=== PATIENT | female | born 1945 | race Caucasian/White ===

== ENCOUNTER 2021-01-16 16:58 | Observation (INO) | payer MEDICARE ==
--- NOTE | 2021-01-16 18:21 | EDM.PDOC ---
ED HPI GENERAL MEDICAL PROBLEM - General Chief Complaint: General Stated Complaint: FELL AT HOME Time Seen by Provider: 01/16/21 17:59 Source of Information: Reports: Family History Limitations: Reports: Other (Patient has dementia with psychosis does not answer questions) - History of Present Illness INITIAL COMMENTS - FREE TEXT/NARRATIVE: Aura is a 75-year-old female presenting with her for evaluation of multiple falls today. The patient's notes that over the last couple of days she has become increasingly weak, sleeping more, and eating less. Today she only consumed a glass of orange juice and a glass of water. He reports that this morning he went and brought her breakfast but she did not want to eat. Shortly thereafter she try to get out of bed to use the bathroom but had already had urinary incontinence in bed which is not typical for her. On the way to the bathroom she fell and struck her head on the side of the night stand. He said that she had a bump on her head but otherwise was not complaining. Later in the day she was up but was quite unsteady and he was helping her back into the bedroom where she wanted to sit in the chair next to the bed. He decided to take a nap and when he awoke she had gotten up and changed her top and when he went to seek her out she was on the bathroom floor. He helped her up to get her to the toilet but in route she collapsed again causing him to strike 1 arm on the counter in the other arm on the toilet. He did help her down to the ground. Staff from the assisted living helped him and get her back up and they strongly suggested that he bring her in for evaluation. back Pain Score (Numeric/FACES): 8 - Related Data Allergies Allergy/AdvReac Type Severity Reaction Status Date / Time Penicillins Allergy Other Verified 01/16/21 17:24 Sulfa (Sulfonamide Allergy Other Verified 01/16/21 17:24 Antibiotics) Home Meds: Home Meds Cholecalciferol (Vitamin D3) [Vitamin D3] 50 mcg PO DAILY 01/16/21 [History] Donepezil HCl [Aricept] 10 mg PO BEDTIME 01/16/21 [History] FLUoxetine HCl [Prozac] 40 mg PO DAILY 01/16/21 [History] LORazepam [Ativan] 0.5 mg PO ASDIRECTED 01/16/21 [History] Loratadine 10 mg PO ASDIRECTED 01/16/21 [History] Mv-Min/Iron/Folic/Calcium/Vitk [Women's Multivitamin Tablet] 1 tab PO DAILY 01/16/21 [History] Propylene Glycol/PEG 400/Pf [Systane 0.3-0.4% Eye Drop] 1 drop EYEBOTH BID 01/16/21 [History] lisinopriL [Lisinopril] 2.5 mg PO DAILY 01/16/21 [History] risperiDONE [Risperdal] 1 mg PO DAILY 01/16/21 [History] Past Medical History HEENT History: Reports: Cataract Cardiovascular History: Reports: High Cholesterol, Hypertension Respiratory History: Reports: Sleep Apnea, SOB Musculoskeletal History: Reports: Fibromyalgia, Osteoarthritis, Other (See Below) Other Musculoskeletal History: bursitis Psychiatric History: Reports: Depression, Hallucinations, Schizophrenia, Other (See Below) Other Psychiatric History: mood disorder. catatonic schizophrenia. schizoaffective disorder Social & Family History - Tobacco Use Tobacco Use Status *Q: Never Tobacco User - Caffeine Use Caffeine Use: Reports: None - Recreational Drug Use Recreational Drug Use: No ED ROS GENERAL - Review of Systems Review Of Systems: Unable To Obtain Reason Not Obtained: Dementia with psychosis. Not able to answer questions ED EXAM, GENERAL - Physical Exam Exam: See Below Exam Limited By: Altered Mental Status General Appearance: No Apparent Distress, Lethargic Eye Exam: Bilateral Eye: PERRL Nose: Normal Inspection, Normal Mucosa Throat/Mouth: Normal Inspection, Normal Lips, Normal Teeth, Normal Oropharynx, Normal Voice, No Airway Compromise Head: Atraumatic, Normocephalic. No: Facial Swelling, Facial Tenderness, Sinus Tenderness Neck: Supple, Tender Midline (Mild midline tenderness around the level of C3-C4) Respiratory/Chest: No Respiratory Distress, Lungs Clear, Normal Breath Sounds Cardiovascular: Normal Peripheral Pulses, Regular Rate, Rhythm, No Murmur Peripheral Pulses: 2+: Radial (L), Radial (R), Posterior Tibial (L), Posterior Tibial (R) GI/Abdominal: Normal Bowel Sounds, Soft, Non-Tender Back Exam: Normal Inspection, Full Range of Motion Extremities: Normal Inspection, Normal Range of Motion Neurological: Alert, No Motor/Sensory Deficits Skin Exam: Warm, Dry Course - Vital Signs Last Recorded V/S: Last Vital Signs Temp 36.3 C 01/16/21 18:40 Pulse 71 01/16/21 19:56 Resp 16 01/16/21 17:15 BP 131/56 L 01/16/21 19:56 Pulse Ox 96 01/16/21 19:56 - Orders/Labs/Meds Orders: Active Orders 24 hr Category Date Time Status CULTURE URINE [RM] Stat Lab 01/16/21 20:06 Ordered Labs: Laboratory Tests 01/16/21 01/16/21 01/16/21 Range/Units 18:01 18:32 18:32 WBC 17.8 H (4.5-11.0) K/uL RBC 4.25 (3.30-5.50) M/uL Hgb 13.3 (12.0-15.0) g/dL Hct 40.3 (36.0-48.0) % MCV 95 (80-98) fL MCH 31 (27-31) pg MCHC 33 (32-36) % Plt Count 223 (150-400) K/uL Neut % (Auto) 88.0 H (36-66) % Lymph % (Auto) 2.8 L (24-44) % [place] % (Auto) 9.1 H (2-6) % Eos % (Auto) 0.0 L (2-4) % Baso % (Auto) 0.1 (0-1) % PT 10.8 (9.5-12.0) sec INR 0.99 (0.80-1.20) APTT 22.4 L (27.0-36.0) sec Sodium (140-148) mmol/L Potassium (3.6-5.2) mmol/L Chloride (100-108) mmol/L Carbon Dioxide (21-32) mmol/L Anion Gap (5.0-14.0) mmol/L BUN (7-18) mg/dL Creatinine (0.6-1.0) mg/dL Est Cr Clr Drug Dosing mL/min Estimated GFR (MDRD) (>60) Glucose (74-106) mg/dL Lactic Acid (0.4-2.0) mmol/L Calcium (8.5-10.1) mg/dL Total Bilirubin (0.2-1.0) mg/dL AST (15-37) U/L ALT (12-78) U/L Alkaline Phosphatase (46-116) U/L Total Protein (6.4-8.2) g/dL Albumin (3.4-5.0) g/dL Globulin (2.3-3.5) g/dL Albumin/Globulin Ratio (1.2-2.2) Urine Color Yellow (YELLOW) Urine Appearance Cloudy A (CLEAR) Urine pH 7.0 (5.0-8.0) Ur Specific [place] 1.025 (1.008-1.030) Urine Protein 100 H (NEGATIVE) mg/dL Urine Glucose (UA) Negative (NEGATIVE) mg/dL Urine Ketones 15 H (NEGATIVE) mg/dL Urine Occult Blood Moderate H (NEGATIVE) Urine Nitrite Positive H (NEGATIVE) Urine Bilirubin Negative (NEGATIVE) Urine Urobilinogen 0.2 (0.2-1.0) EU/dL Ur Leukocyte Esterase Small H (NEGATIVE) Urine RBC 10-20 H (0-5) Urine WBC Packed H (0-5) Ur Epithelial Cells Few Amorphous Sediment Not seen Urine Bacteria Many Urine Mucus Not seen 01/16/21 01/16/21 Range/Units 18:32 18:32 WBC (4.5-11.0) K/uL RBC (3.30-5.50) M/uL Hgb (12.0-15.0) g/dL Hct (36.0-48.0) % MCV (80-98) fL MCH (27-31) pg MCHC (32-36) % Plt Count (150-400) K/uL Neut % (Auto) (36-66) % Lymph % (Auto) (24-44) % [place] % (Auto) (2-6) % Eos % (Auto) (2-4) % Baso % (Auto) (0-1) % PT (9.5-12.0) sec INR (0.80-1.20) APTT (27.0-36.0) sec Sodium 141 (140-148) mmol/L Potassium 4.0 (3.6-5.2) mmol/L Chloride 102 (100-108) mmol/L Carbon Dioxide 29 (21-32) mmol/L Anion Gap 10.4 (5.0-14.0) mmol/L BUN 19 H (7-18) mg/dL Creatinine 1.0 (0.6-1.0) mg/dL Est Cr Clr Drug Dosing 39.47 mL/min Estimated GFR (MDRD) 54 L (>60) Glucose 115 H (74-106) mg/dL Lactic Acid 1.0 (0.4-2.0) mmol/L Calcium 9.2 (8.5-10.1) mg/dL Total Bilirubin 0.5 (0.2-1.0) mg/dL AST 17 (15-37) U/L ALT 36 (12-78) U/L Alkaline Phosphatase 60 (46-116) U/L Total Protein 6.5 (6.4-8.2) g/dL Albumin 3.4 (3.4-5.0) g/dL Globulin 3.1 (2.3-3.5) g/dL Albumin/Globulin Ratio 1.1 L (1.2-2.2) Urine Color (YELLOW) Urine Appearance (CLEAR) Urine pH (5.0-8.0) Ur Specific [place] (1.008-1.030) Urine Protein (NEGATIVE) mg/dL Urine Glucose (UA) (NEGATIVE) mg/dL Urine Ketones (NEGATIVE) mg/dL Urine Occult Blood (NEGATIVE) Urine Nitrite (NEGATIVE) Urine Bilirubin (NEGATIVE) Urine Urobilinogen (0.2-1.0) EU/dL Ur Leukocyte Esterase (NEGATIVE) Urine RBC (0-5) Urine WBC (0-5) Ur Epithelial Cells Amorphous Sediment Urine Bacteria Urine Mucus - Radiology Interpretation Free Text/Narrative:: I reviewed the CT of the brain without contrast showing periventricular white matter changes consistent with microvascular disease and diffuse atrophy. There is no acute intracranial abnormalities including bleed, mass, or midline shift. I reviewed the CT of the cervical spine without contrast showing no acute osseous abnormalities. Patient does have degenerative disc disease which is chronic. - Re-Assessments/Exams Free Text/Narrative Re-Assessment/Exam: 01/16/21 19:28 reviewed the patient's labs showing a leukocyte count of 17.8 which is 90% neutrophils. Her hemoglobin is 13 3 with a crit of 40.3. Her comprehensive metabolic panel is unremarkable. Her venous lactate is 1.0. Her PT and PTT are normal. We are awaiting urinalysis. A CT of the brain without contrast was unremarkable for any acute findings. There was evidence of chronic periventricular white matter changes consistent with microvascular disease and generalized atrophy. CT scan of the cervical spine without contrast was also unremarkable for any acute findings. There was evidence of chronic degenerative disc disease. 01/16/21 20:06 urinalysis shows nicolasa pyuria with positive nitrite and leukocyte esterase and packed WBCs on the high field view. A urine culture has been ordered. Because of the recurrent falls and her underlying dementia, we will admit her to the hospital under observation for initiating antibiotic therapy. I discussed the case with Dr. Miller will arrange for the admission. Departure - Departure Time of Disposition: 20:07 Disposition: Refer to Observation Clinical Impression: Recurrent falls, Generalized weakness, Dementia with psychosis Urinary tract infection Qualifiers: Urinary tract infection type: acute cystitis Hematuria presence: with hematuria Qualified Code(s): N30.01 - Acute cystitis with hematuria - Discharge Information Referrals: PCP,None [Primary Care Provider] - Forms: ED Department Discharge Sepsis Event Note (ED) - Evaluation Sepsis Screening Result: No Definite Risk - Focused Exam Vital Signs: Vital Signs Temp Pulse Resp BP Pulse Ox 01/16/21 19:56 71 131/56 L 96 01/16/21 18:40 36.3 C 62 124/49 L 94 L 01/16/21 17:15 36.7 C 66 16 130/58 L 94 L - My Orders Last 24 Hours: My Active Orders 01/16/21 20:06 CULTURE URINE [RM] Stat - Assessment/Plan Last 24 Hours: My Active Orders 01/16/21 20:06 CULTURE URINE [RM] Stat
--- NOTE | 2021-01-16 19:00 | CRLCT ---
INDICATION: Multiple falls, neck pain TECHNIQUE: CT cervical spine without contrast. COMPARISON: None FINDINGS: Vertebral alignment: Alignment is normal. Vertebrae: There are no fractures or suspicious bony lesions. Discs and facet joints: Two-level degenerative changes Extraspinal findings: Prevertebral soft tissues, visualized airway, and visualized lungs are unremarkable. IMPRESSION: No evidence of acute cervical spine trauma Multilevel degenerative changes. Dictated by Chin Alcala MD @ 01/16/2021 6:59:08 PM Please note that all CT scans at this facility use dose modulation, iterative reconstruction, and/or weight-based dosing when appropriate to reduce radiation dose to as low as reasonably achievable. Dictated by: Chin Alcala MD @ 01/16/2021 18:59:13 (Electronically Signed)
--- NOTE | 2021-01-16 19:00 | CRLCT ---
INDICATION: Multiple falls, dementia TECHNIQUE: CT head without contrast. COMPARISON: None FINDINGS: CSF spaces: Within normal limits for age. Brain parenchyma: The finley-white differentiation is normal. No sign of mass, hemorrhage, or midline shift. Periventricular white matter changes consistent chronic microvascular disease. Diffuse final spot Skull base and calvarium: The visualized paranasal sinuses and mastoid air cells demonstrate no acute or significant findings. The visualized orbits are grossly unremarkable. No skull fractures. IMPRESSION: No acute intracranial abnormalities. Periventricular white matter changes consistent chronic microvascular disease. Diffuse volume loss. Dictated by Chin Alcala MD @ 01/16/2021 6:57:53 PM Please note that all CT scans at this facility use dose modulation, iterative reconstruction, and/or weight-based dosing when appropriate to reduce radiation dose to as low as reasonably achievable. Dictated by: Chin Alcala MD @ 01/16/2021 18:58:04 (Electronically Signed)
[2021-01-16] MEDS ORDERED: Sodium Chloride 0.9% 1,000 ML IV ONE (20:14)
[2021-01-16] MEDS ORDERED: Acetaminophen 500 MG Tab PO ONE (20:15)
--- NOTE | 2021-01-16 21:03 | CRLCR ---
HISTORY: Left hip pain with movement. COMPARISON: None available. FINDINGS: A single AP view of the pelvis shows no sign of fracture or dislocation. There is mild primary osteoarthritis of the left hip with mild joint space narrowing, without any additional degenerative change. The right hip is normal in appearance with no sign of degenerative disease. There is mild primary osteoarthritis of both sacroiliac joints. The rest of the bony pelvis is normal in appearance. The inferior lumbar spine is normal in appearance. The soft tissues of the pelvis are unremarkable. 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 Dictated by Henry Gustafson MD @ 01/16/2021 9:01:[address] Henry Gustafson @ Jan 16 2021 9:01PM
[2021-01-16] MEDS: cefTRIAXone 1 GM in Sodium Chloride 0.9% 50 ML IV SCH (21:11)
--- NOTE | 2021-01-16 21:16 | PCM.HP.2 ---
H&P History of Present Illness - General Date of Service: 01/16/21 Admit Problem/Dx: Admission Diagnosis/Problem Admission Diagnosis/Problem Acute cystitis without hematuria Source of Information: Family, Provider. No: Patient History Limitations: Reports: Altered Mental Status (advanced dementia) - History of Present Illness Initial Comments - Free Text/Narative: CC: two falls HPI: Aura presented to the emergency room after she had a couple of falls at home. She has advanced dementia and is not able to provide any reliable history at this time. History is gathered from her Chetan as well as emergency room personnel. He reports that she has been off for several days. She has been refusing to go down for breakfast like normal. He has not noticed a si gnificant change beyond this until today. She appeared to be weak and was unsteady on her feet. She had 2 falls at home. One of them was unwitnessed. He did not notice any obvious injuries that she was not complaining of any specific pain. He has not noticed any change in her bowel or bladder habits. She has been sleeping more than usual. She has been eating quite a bit less than usual the last 2 to 3 days. She has not had any vomiting. She has not appeared short of breath per his report. Work-up in the emergency room revealed evidence for a urinary tract infection. She has leukocytosis with a white blood cell count of 17,000. Vital signs are otherwise stable. She will be admitted to the hospital for IV fluids and antibiotics. back Pain Score (Numeric/FACES): 8 - Related Data Allergies/Adverse Reactions: Allergies Allergy/AdvReac Type Severity Reaction Status Date / Time Penicillins Allergy Other Verified 01/16/21 17:24 Sulfa (Sulfonamide Allergy Other Verified 01/16/21 17:24 Antibiotics) Home Medications: Home Meds Cholecalciferol (Vitamin D3) [Vitamin D3] 50 mcg PO DAILY 01/16/21 [History] Donepezil HCl [Aricept] 10 mg PO BEDTIME 01/16/21 [History] FLUoxetine HCl [Prozac] 40 mg PO DAILY 01/16/21 [History] LORazepam [Ativan] 0.5 mg PO BID PRN 01/16/21 [History] Loratadine 10 mg PO ASDIRECTED 01/16/21 [History] Mv-Min/Iron/Folic/Calcium/Vitk [Women's Multivitamin Tablet] 1 tab PO DAILY 01/16/21 [History] Propylene Glycol/PEG 400/Pf [Systane 0.3-0.4% Eye Drop] 1 drop EYEBOTH BID 01/16/21 [History] lisinopriL [Lisinopril] 2.5 mg PO DAILY 01/16/21 [History] risperiDONE [Risperdal] 1 mg PO BID 01/16/21 [History] Past Medical History HEENT History: Reports: Cataract Cardiovascular History: Reports: High Cholesterol, Hypertension Respiratory History: Reports: Sleep Apnea, SOB Musculoskeletal History: Reports: Fibromyalgia, Osteoarthritis, Other (See Below) Other Musculoskeletal History: bursitis Psychiatric History: Reports: Depression, Hallucinations, Schizophrenia, Other ( See Below) Other Psychiatric History: mood disorder. catatonic schizophrenia. schizoaffective disorder Social & Family History - Family History Family Medical History: Unobtainable (advanced demenia) - Tobacco Use Tobacco Use Status *Q: Never Tobacco User - Caffeine Use Caffeine Use: Reports: None - Alcohol Use Alcohol Use History: No - Recreational Drug Use Recreational Drug Use: No H&P Review of Systems - Review of Systems: Review Of Systems: Unable To Obtain (advanced dementia) Reason Not Obtained: Advanced dementia Exam - Exam Exam: See Below - Vital Signs Vital Signs: Last Vital Signs Temp 39.3 C H 01/16/21 20:16 Pulse 72 01/16/21 20:16 Resp 16 01/16/21 17:15 BP 141/59 H 01/16/21 20:16 Pulse Ox 94 L 01/16/21 20:16 Weight: 49.895 kg - Exam Quality Assessment: No: Supplemental Oxygen General: Alert, Cooperative, Mild Distress. No: Oriented HEENT: Conjunctiva Clear. No: Mucosa Moist & [place] (dry), Scleral Icterus Neck: Supple, Trachea Midline. No: Lymphadenopathy Lungs: Clear to Auscultation, Normal Respiratory Effort Cardiovascular: Regular Rate, Regular Rhythm. No: Systolic Murmur GI/Abdominal Exam: Normal Bowel Sounds, Soft, Non-Tender, No Distention, No Mass Extremities: No Pedal Edema, Other (mild ttp over left lateral hip. No bruising or deformity ). No: Joint Swelling, Increased Warmth Peripheral Pulses: 2+: Dorsalis Pedis (L), Dorsalis Pedis (R) Skin: Warm, Dry Neuro Extensive - Mental Status: Alert, Slow Response to Commands. No: Oriented x3 Neuro Extensive - Motor, Sensory, Reflexes: Tremor. No: Dysarthria, Abnormal Motor Psychiatric: Alert, Other (lethargic ). No: Agitated - Patient Data Lab Results Last 24 hrs: Laboratory Results - last 24 hr 01/16/21 01/16/21 01/16/21 Range/Units 18:01 18:32 18:32 WBC 17.8 H (4.5-11.0) K/uL RBC 4.25 (3.30-5.50) M/uL Hgb 13.3 (12.0-15.0) g/dL Hct 40.3 (36.0-48.0) % MCV 95 (80-98) fL MCH 31 (27-31) pg MCHC 33 (32-36) % Plt Count 223 (150-400) K/uL Neut % (Auto) 88.0 H (36-66) % Lymph % (Auto) 2.8 L (24-44) % [place] % (Auto) 9.1 H (2-6) % Eos % (Auto) 0.0 L (2-4) % Baso % (Auto) 0.1 (0-1) % PT 10.8 (9.5-12.0) sec INR 0.99 (0.80-1.20) APTT 22.4 L (27.0-36.0) sec Sodium (140-148) mmol/L Potassium (3.6-5.2) mmol/L Chloride (100-108) mmol/L Carbon Dioxide (21-32) mmol/L Anion Gap (5.0-14.0) mmol/L BUN (7-18) mg/dL Creatinine (0.6-1.0) mg/dL Est Cr Clr Drug Dosing mL/min Estimated GFR (MDRD) (>60) Glucose (74-106) mg/dL Lactic Acid (0.4-2.0) mmol/L Calcium (8.5-10.1) mg/dL Total Bilirubin (0.2-1.0) mg/dL AST (15-37) U/L ALT (12-78) U/L Alkaline Phosphatase (46-116) U/L Total Protein (6.4-8.2) g/dL Albumin (3.4-5.0) g/dL Globulin (2.3-3.5) g/dL Albumin/Globulin Ratio (1.2-2.2) Urine Color Yellow (YELLOW) Urine Appearance Cloudy A (CLEAR) Urine pH 7.0 (5.0-8.0) Ur Specific [place] 1.025 (1.008-1.030) Urine Protein 100 H (NEGATIVE) mg/dL Urine Glucose (UA) Negative (NEGATIVE) mg/dL Urine Ketones 15 H (NEGATIVE) mg/dL Urine Occult Blood Moderate H (NEGATIVE) Urine Nitrite Positive H (NEGATIVE) Urine Bilirubin Negative (NEGATIVE) Urine Urobilinogen 0.2 (0.2-1.0) EU/dL Ur Leukocyte Esterase Small H (NEGATIVE) Urine RBC 10-20 H (0-5) Urine WBC Packed H (0-5) Ur Epithelial Cells Few Amorphous Sediment Not seen Urine Bacteria Many Urine Mucus Not seen 01/16/21 01/16/21 Range/Units 18:32 18:32 WBC (4.5-11.0) K/uL RBC (3.30-5.50) M/uL Hgb (12.0-15.0) g/dL Hct (36.0-48.0) % MCV (80-98) fL MCH (27-31) pg MCHC (32-36) % Plt Count (150-400) K/uL Neut % (Auto) (36-66) % Lymph % (Auto) (24-44) % [place] % (Auto) (2-6) % Eos % (Auto) (2-4) % Baso % (Auto) (0-1) % PT (9.5-12.0) sec INR (0.80-1.20) APTT (27.0-36.0) sec Sodium 141 (140-148) mmol/L Potassium 4.0 (3.6-5.2) mmol/L Chloride 102 (100-108) mmol/L Carbon Dioxide 29 (21-32) mmol/L Anion Gap 10.4 (5.0-14.0) mmol/L BUN 19 H (7-18) mg/dL Creatinine 1.0 (0.6-1.0) mg/dL Est Cr Clr Drug Dosing 39.47 mL/min Estimated GFR (MDRD) 54 L (>60) Glucose 115 H (74-106) mg/dL Lactic Acid 1.0 (0.4-2.0) mmol/L Calcium 9.2 (8.5-10.1) mg/dL Total Bilirubin 0.5 (0.2-1.0) mg/dL AST 17 (15-37) U/L ALT 36 (12-78) U/L Alkaline Phosphatase 60 (46-116) U/L Total Protein 6.5 (6.4-8.2) g/dL Albumin 3.4 (3.4-5.0) g/dL Globulin 3.1 (2.3-3.5) g/dL Albumin/Globulin Ratio 1.1 L (1.2-2.2) Urine Color (YELLOW) Urine Appearance (CLEAR) Urine pH (5.0-8.0) Ur Specific [place] (1.008-1.030) Urine Protein (NEGATIVE) mg/dL Urine Glucose (UA) (NEGATIVE) mg/dL Urine Ketones (NEGATIVE) mg/dL Urine Occult Blood (NEGATIVE) Urine Nitrite (NEGATIVE) Urine Bilirubin (NEGATIVE) Urine Urobilinogen (0.2-1.0) EU/dL Ur Leukocyte Esterase (NEGATIVE) Urine RBC (0-5) Urine WBC (0-5) Ur Epithelial Cells Amorphous Sediment Urine Bacteria Urine Mucus Result Diagrams: 01/16/21 18:32 01/16/21 18:32 Imaging Impressions Last 24 hrs: All of the images below were personally reviewed head CT-mild diffuse volume loss but no acute finding such as mass, hemorrhage or fracture CT of the cervical spine-no evidence for acute fracture or subluxation X-ray of the pelvis-no evidence for fracture of the pelvis or hip Sepsis Event Note - Evaluation Sepsis Screening Result: No Definite Risk - Focused Exam Vital Signs: Vital Signs Temp Pulse Resp BP Pulse Ox 01/16/21 20:16 39.3 C H 72 141/59 H 94 L 01/16/21 19:56 71 131/56 L 96 01/16/21 18:40 36.3 C 62 124/49 L 94 L 01/16/21 17:15 36.7 C 66 16 130/58 L 94 L *Q Meaningful Use (ADM) - VTE Risk Assess *Q Each Risk Factor Represents 1 Point: None Total Score 1 Point Risk Factors: 0 Each Risk Factor Represents 2 Points: Age 60 - 74 Years Total Score 2 Point Risk Factors: 2 Each Risk Factor Represents 3 Points: None Total Score 3 Point Risk Factors: 0 Each Risk Factor Represents 5 Points: None Total Score 5 Point Risk Factors: 0 Venous Thromboembolism Risk Factor Score *Q: 2 - Problem List (1) Acute cystitis without hematuria SNOMED Code(s): 91842882 ICD Code: N30.00 - ACUTE CYSTITIS WITHOUT HEMATURIA Status: Acute Current Visit: Yes (2) Alzheimer's dementia with behavioral disturbance SNOMED Code(s): 2169545849215 ICD Code: G30.9 - ALZHEIMER'S DISEASE, UNSPECIFIED; F02.81 - DEMENTIA IN OTH DISEASES CLASSD ELSWHR W BEHAVIORAL DISTURB Status: Chronic Current Visit: Yes Qualifiers: Alzheimer's disease onset: late-onset Qualified Code(s): G30.1 - Alzheimer's disease with late onset; F02.81 - Dementia in other diseases classified elsewhere with behavioral disturbance Problem List Initiated/Reviewed/Updated: Yes Orders Last 24hrs: Active Orders 24 hr Category Date Time Status Patient Status Manage Transfer [TRANSFER] Routine ADT 01/16/21 21:04 Ordered CULTURE URINE [RM] Stat Lab 01/16/21 20:13 Received Sodium Chloride 0.9% [Normal Saline] 1,000 ml Med 01/16/21 20:14 Active IV .BOLUS cefTRIAXone [Rocephin] 1 gm Med 01/16/21 22:00 Ordered Sodium Chloride 0.9% [Normal Saline] 50 ml IV Q24H Resuscitation Status Routine Resus Stat 01/16/21 21:06 Ordered Medication Orders Sodium Chloride (Normal Saline) 1,000 mls @ 999 mls/hr IV .BOLUS ONE Stop: 01/16/21 21:14 Last Admin: 01/16/21 20:22 Dose: 999 mls/hr Documented by: JONES Ceftriaxone Sodium 1 gm/ (Sodium Chloride) 50 mls @ 100 mls/hr IV Q24H COUNT INCLUDES THE [facility] Assessment/Plan Comment:: ASSESSMENT AND PLAN - Acute cystitis without hematuria-manifestations of weakness and increased confusion from baseline. She does have leukocytosis. Vital signs are currently stable. Lactic acid was normal. -Ceftriaxone -Follow-up urine culture -IV fluids overnight -Symptomatic management of fever -Physical therapy in the morning Alzheimer's dementia with behavioral disturbance-history of previous stays at behavioral units. She has had difficulty with auditory hallucinations. -Continue outpatient management including risperidone -Melatonin at bedtime Maintenance issues - -DVT prophylaxis-mechanical -GI prophylaxis-not indicated -Nutrition-regular diet -Forde catheter-not indicated CODE STATUS -unable to reach her Chetan to talk about this tonight. I cannot find any previous documentation. She will be full code until we can talk about it again tomorrow. Admission justification -this patient will be admitted for observation to initiate antibiotics and IV fluids. She is not safe for management at home because of her frequent falls and advanced dementia. Disposition -I anticipate discharge back to her assisted living after the hospital stay Primary care physician -Dr. Madonna Miller M.D. - Mortality Measure Prognosis:: Good
[2021-01-16] MEDS ORDERED: Haloperidol Lactate 5 MG/ML SDV IVPUSH PRN (22:06)
[2021-01-16] MEDS ORDERED: Ondansetron 4 MG/2 ML SDV IV PRN (22:06)
[2021-01-16] MEDS ORDERED: risperiDONE 1 MG Tab PO SCH (22:06)
[2021-01-16] MEDS ORDERED: Ondansetron 4 MG Tab.DIS PO PRN (22:06)
[2021-01-16] MEDS ORDERED: Ibuprofen 600 MG Tab PO PRN (22:06)
[2021-01-16] MEDS ORDERED: Magnesium Hydroxide 400 MG/5 ML Susp 30 ML Cup PO PRN (22:06)
[2021-01-16] MEDS ORDERED: Donepezil 10 MG Tab PO SCH (22:06)
[2021-01-16] MEDS ORDERED: Sodium Chloride 0.9% 1,000 ML IV SCH (22:06)
[2021-01-16] MEDS: Melatonin 3 MG Tab PO SCH (22:21)
[2021-01-17] MEDS ORDERED: Lisinopril 2.5 MG Tab PO SCH (09:00)
[2021-01-17] MEDS ORDERED: FLUoxetine 20 MG Cap PO SCH (09:00)
--- NOTE | 2021-01-17 10:31 | PCM.PN ---
- General Info Date of Service: 01/17/21 Subjective Update: There were no acute events overnight. No reliable history is able to be obtained because of her dementia. Patient did have an additional fever after admission but temperature is normal this morning. The patient did have a fall this morning after getting up on her own. She is complaining of some lower back discomfort but there are no apparent injuries. She does not report abdominal pain. White count is a little better. Urine culture is growing a gram-negative mary. - Review of Systems General: Reports: Fever Neurological: Reports: Confusion - Patient Data Vitals - Most Recent: Last Vital Signs Temp 37.1 C 01/17/21 09:43 Pulse 65 01/17/21 09:43 Resp 18 01/17/21 09:43 BP 112/56 L 01/17/21 09:43 Pulse Ox 98 01/17/21 09:43 Weight - Most Recent: 49.804 kg I&O - Last 24 Hours: Intake & Output 01/16/21 01/17/21 01/17/21 22:59 06:59 14:59 Intake Total 910 Balance 910 Lab Results Last 24 Hours: Laboratory Results - last 24 hr 01/16/21 01/16/21 01/16/21 Range/Units 18:01 18:32 18:32 WBC 17.8 H (4.5-11.0) K/uL RBC 4.25 (3.30-5.50) M/uL Hgb 13.3 (12.0-15.0) g/dL Hct 40.3 (36.0-48.0) % MCV 95 (80-98) fL MCH 31 (27-31) pg MCHC 33 (32-36) % Plt Count 223 (150-400) K/uL Neut % (Auto) 88.0 H (36-66) % Lymph % (Auto) 2.8 L (24-44) % [place] % (Auto) 9.1 H (2-6) % Eos % (Auto) 0.0 L (2-4) % Baso % (Auto) 0.1 (0-1) % PT 10.8 (9.5-12.0) sec INR 0.99 (0.80-1.20) APTT 22.4 L (27.0-36.0) sec Sodium (140-148) mmol/L Potassium (3.6-5.2) mmol/L Chloride (100-108) mmol/L Carbon Dioxide (21-32) mmol/L Anion Gap (5.0-14.0) mmol/L BUN (7-18) mg/dL Creatinine (0.6-1.0) mg/dL Est Cr Clr Drug Dosing mL/min Estimated GFR (MDRD) (>60) Glucose (74-106) mg/dL Lactic Acid (0.4-2.0) mmol/L Calcium (8.5-10.1) mg/dL Total Bilirubin (0.2-1.0) mg/dL AST (15-37) U/L ALT (12-78) U/L Alkaline Phosphatase (46-116) U/L Total Protein (6.4-8.2) g/dL Albumin (3.4-5.0) g/dL Globulin (2.3-3.5) g/dL Albumin/Globulin Ratio (1.2-2.2) Urine Color Yellow (YELLOW) Urine Appearance Cloudy A (CLEAR) Urine pH 7.0 (5.0-8.0) Ur Specific [place] 1.025 (1.008-1.030) Urine Protein 100 H (NEGATIVE) mg/dL Urine Glucose (UA) Negative (NEGATIVE) mg/dL Urine Ketones 15 H (NEGATIVE) mg/dL Urine Occult Blood Moderate H (NEGATIVE) Urine Nitrite Positive H (NEGATIVE) Urine Bilirubin Negative (NEGATIVE) Urine Urobilinogen 0.2 (0.2-1.0) EU/dL Ur Leukocyte Esterase Small H (NEGATIVE) Urine RBC 10-20 H (0-5) Urine WBC Packed H (0-5) Ur Epithelial Cells Few Amorphous Sediment Not seen Urine Bacteria Many Urine Mucus Not seen 01/16/21 01/16/21 01/17/21 Range/Units 18:32 18:32 04:00 WBC 16.4 H (4.5-11.0) K/uL RBC 3.60 (3.30-5.50) M/uL Hgb 11.5 L (12.0-15.0) g/dL Hct 34.7 L (36.0-48.0) % MCV 96 (80-98) fL MCH 32 H (27-31) pg MCHC 33 (32-36) % Plt Count 179 (150-400) K/uL Neut % (Auto) (36-66) % Lymph % (Auto) (24-44) % [place] % (Auto) (2-6) % Eos % (Auto) (2-4) % Baso % (Auto) (0-1) % PT (9.5-12.0) sec INR (0.80-1.20) APTT (27.0-36.0) sec Sodium 141 (140-148) mmol/L Potassium 4.0 (3.6-5.2) mmol/L Chloride 102 (100-108) mmol/L Carbon Dioxide 29 (21-32) mmol/L Anion Gap 10.4 (5.0-14.0) mmol/L BUN 19 H (7-18) mg/dL Creatinine 1.0 (0.6-1.0) mg/dL Est Cr Clr Drug Dosing 39.47 mL/min Estimated GFR (MDRD) 54 L (>60) Glucose 115 H (74-106) mg/dL Lactic Acid 1.0 (0.4-2.0) mmol/L Calcium 9.2 (8.5-10.1) mg/dL Total Bilirubin 0.5 (0.2-1.0) mg/dL AST 17 (15-37) U/L ALT 36 (12-78) U/L Alkaline Phosphatase 60 (46-116) U/L Total Protein 6.5 (6.4-8.2) g/dL Albumin 3.4 (3.4-5.0) g/dL Globulin 3.1 (2.3-3.5) g/dL Albumin/Globulin Ratio 1.1 L (1.2-2.2) Urine Color (YELLOW) Urine Appearance (CLEAR) Urine pH (5.0-8.0) Ur Specific [place] (1.008-1.030) Urine Protein (NEGATIVE) mg/dL Urine Glucose (UA) (NEGATIVE) mg/dL Urine Ketones (NEGATIVE) mg/dL Urine Occult Blood (NEGATIVE) Urine Nitrite (NEGATIVE) Urine Bilirubin (NEGATIVE) Urine Urobilinogen (0.2-1.0) EU/dL Ur Leukocyte Esterase (NEGATIVE) Urine RBC (0-5) Urine WBC (0-5) Ur Epithelial Cells Amorphous Sediment Urine Bacteria Urine Mucus 05/21/21 Range/Units 04:00 WBC (4.5-11.0) K/uL RBC (3.30-5.50) M/uL Hgb (12.0-15.0) g/dL Hct (36.0-48.0) % MCV (80-98) fL MCH (27-31) pg MCHC (32-36) % Plt Count (150-400) K/uL Neut % (Auto) (36-66) % Lymph % (Auto) (24-44) % [place] % (Auto) (2-6) % Eos % (Auto) (2-4) % Baso % (Auto) (0-1) % PT (9.5-12.0) sec INR (0.80-1.20) APTT (27.0-36.0) sec Sodium 143 (140-148) mmol/L Potassium 3.8 (3.6-5.2) mmol/L Chloride 107 (100-108) mmol/L Carbon Dioxide 25 (21-32) mmol/L Anion Gap 11.4 (5.0-14.0) mmol/L BUN 18 (7-18) mg/dL Creatinine 1.0 (0.6-1.0) mg/dL Est Cr Clr Drug Dosing 39.39 mL/min Estimated GFR (MDRD) 54 L (>60) Glucose 102 (74-106) mg/dL Lactic Acid (0.4-2.0) mmol/L Calcium 7.9 L (8.5-10.1) mg/dL Total Bilirubin (0.2-1.0) mg/dL AST (15-37) U/L ALT (12-78) U/L Alkaline Phosphatase (46-116) U/L Total Protein (6.4-8.2) g/dL Albumin (3.4-5.0) g/dL Globulin (2.3-3.5) g/dL Albumin/Globulin Ratio (1.2-2.2) Urine Color (YELLOW) Urine Appearance (CLEAR) Urine pH (5.0-8.0) Ur Specific [place] (1.008-1.030) Urine Protein (NEGATIVE) mg/dL Urine Glucose (UA) (NEGATIVE) mg/dL Urine Ketones (NEGATIVE) mg/dL Urine Occult Blood (NEGATIVE) Urine Nitrite (NEGATIVE) Urine Bilirubin (NEGATIVE) Urine Urobilinogen (0.2-1.0) EU/dL Ur Leukocyte Esterase (NEGATIVE) Urine RBC (0-5) Urine WBC (0-5) Ur Epithelial Cells Amorphous Sediment Urine Bacteria Urine Mucus Sheldon Results Last 24 Hours: Microbiology 01/16/21 20:13 Urine Culture - Preliminary Urine, Quick Cath (In-Out) Med Orders - Current: Current Medications Acetaminophen (Acetaminophen 325 Mg Tab) 650 mg PO Q4H PRN PRN Reason: Pain (Mild 1-3)/fever Artificial Tears (Hypromellose 0.3% Ophth Soln 15 Ml Bottle) 1 ml EYEBOTH BID [facility] Donepezil HCl (Donepezil 10 Mg Tab) 10 mg PO BEDTIME [facility] Last Admin: 01/16/21 22:21 Dose: 10 mg Documented by: Fluoxetine HCl (Fluoxetine 20 Mg Cap) 40 mg PO DAILY [facility] Haloperidol Lactate (Haloperidol Lactate 5 Mg/Ml Sdv) 1 mg IVPUSH Q4H PRN PRN Reason: Agitation Ceftriaxone Sodium 1 gm/ (Sodium Chloride) 50 mls @ 100 mls/hr IV Q24H [facility] Last Admin: 01/16/21 21:11 Dose: 100 mls/hr Documented by: Ibuprofen (Ibuprofen 600 Mg Tab) 600 mg PO Q6H PRN PRN Reason: Pain/Fever Last Admin: 01/17/21 01:49 Dose: 600 mg Documented by: Lisinopril (Lisinopril 2.5 Mg Tab) 2.5 mg PO DAILY [facility] Magnesium Hydroxide (Magnesium Hydroxide 400 Mg/5 Ml Susp 30 Ml Cup) 30 ml PO Q12H PRN PRN Reason: Constipation Melatonin (Melatonin 3 Mg Tab) 9 mg PO BEDTIME [facility] Last Admin: 01/16/21 22:21 Dose: 9 mg Documented by: Ondansetron HCl (Ondansetron 4 Mg/2 Ml Sdv) 4 mg IV Q6H PRN PRN Reason: Nausea/Vomiting Ondansetron HCl (Ondansetron 4 Mg Tab.Dis) 4 mg PO Q6H PRN PRN Reason: Nausea able to take PO Risperidone (Risperidone 1 Mg Tab) 1 mg PO BID [facility] Last Admin: 01/16/21 22:32 Dose: 1 mg Documented by: Senna/Docusate Sodium (Docusate Sodium/Sennosides 50-8.6 Mg Tab) 1 tab PO BID PRN PRN Reason: Constipation Discontinued Medications Acetaminophen (Acetaminophen 500 Mg Tab) 1,000 mg PO ONETIME ONE Stop: 01/16/21 20:16 Last Admin: 01/16/21 20:23 Dose: 1,000 mg Documented by: Sodium Chloride (Normal Saline) 1,000 mls @ 999 mls/hr IV .BOLUS ONE Stop: 01/16/21 21:14 Last Admin: 01/16/21 20:22 Dose: 999 mls/hr Documented by: Sodium Chloride (Normal Saline) 1,000 mls @ 125 mls/hr IV ASDIRECTED TRUNG Stop: 01/17/21 06:07 Last Admin: 01/16/21 22:18 Dose: 125 mls/hr Documented by: - Exam Quality Assessment: No: Supplemental Oxygen General: Alert, Mild Distress. No: Oriented Lungs: Clear to Auscultation, Normal Respiratory Effort Cardiovascular: Regular Rate, Regular Rhythm GI/Abdominal Exam: Normal Bowel Sounds, Soft, Non-Tender, No Distention Back Exam: Normal Inspection. No: Paraspinal Tenderness, Vertebral Tenderness Extremities: No Pedal Edema. No: Increased Warmth Skin: Warm, Dry Psy/Mental Status: Alert. No: Agitated - Patient Data Lab Results Last 24 hrs: Laboratory Results - last 24 hr 01/16/21 01/16/21 01/16/21 Range/Units 18:01 18:32 18:32 WBC 17.8 H (4.5-11.0) K/uL RBC 4.25 (3.30-5.50) M/uL Hgb 13.3 (12.0-15.0) g/dL Hct 40.3 (36.0-48.0) % MCV 95 (80-98) fL MCH 31 (27-31) pg MCHC 33 (32-36) % Plt Count 223 (150-400) K/uL Neut % (Auto) 88.0 H (36-66) % Lymph % (Auto) 2.8 L (24-44) % [place] % (Auto) 9.1 H (2-6) % Eos % (Auto) 0.0 L (2-4) % Baso % (Auto) 0.1 (0-1) % PT 10.8 (9.5-12.0) sec INR 0.99 (0.80-1.20) APTT 22.4 L (27.0-36.0) sec Sodium (140-148) mmol/L Potassium (3.6-5.2) mmol/L Chloride (100-108) mmol/L Carbon Dioxide (21-32) mmol/L Anion Gap (5.0-14.0) mmol/L BUN (7-18) mg/dL Creatinine (0.6-1.0) mg/dL Est Cr Clr Drug Dosing mL/min Estimated GFR (MDRD) (>60) Glucose (74-106) mg/dL Lactic Acid (0.4-2.0) mmol/L Calcium (8.5-10.1) mg/dL Total Bilirubin (0.2-1.0) mg/dL AST (15-37) U/L ALT (12-78) U/L Alkaline Phosphatase (46-116) U/L Total Protein (6.4-8.2) g/dL Albumin (3.4-5.0) g/dL Globulin (2.3-3.5) g/dL Albumin/Globulin Ratio (1.2-2.2) Urine Color Yellow (YELLOW) Urine Appearance Cloudy A (CLEAR) Urine pH 7.0 (5.0-8.0) Ur Specific [place] 1.025 (1.008-1.030) Urine Protein 100 H (NEGATIVE) mg/dL Urine Glucose (UA) Negative (NEGATIVE) mg/dL Urine Ketones 15 H (NEGATIVE) mg/dL Urine Occult Blood Moderate H (NEGATIVE) Urine Nitrite Positive H (NEGATIVE) Urine Bilirubin Negative (NEGATIVE) Urine Urobilinogen 0.2 (0.2-1.0) EU/dL Ur Leukocyte Esterase Small H (NEGATIVE) Urine RBC 10-20 H (0-5) Urine WBC Packed H (0-5) Ur Epithelial Cells Few Amorphous Sediment Not seen Urine Bacteria Many Urine Mucus Not seen 01/16/21 01/16/21 01/17/21 Range/Units 18:32 18:32 04:00 WBC 16.4 H (4.5-11.0) K/uL RBC 3.60 (3.30-5.50) M/uL Hgb 11.5 L (12.0-15.0) g/dL Hct 34.7 L (36.0-48.0) % MCV 96 (80-98) fL MCH 32 H (27-31) pg MCHC 33 (32-36) % Plt Count 179 (150-400) K/uL Neut % (Auto) (36-66) % Lymph % (Auto) (24-44) % [place] % (Auto) (2-6) % Eos % (Auto) (2-4) % Baso % (Auto) (0-1) % PT (9.5-12.0) sec INR (0.80-1.20) APTT (27.0-36.0) sec Sodium 141 (140-148) mmol/L Potassium 4.0 (3.6-5.2) mmol/L Chloride 102 (100-108) mmol/L Carbon Dioxide 29 (21-32) mmol/L Anion Gap 10.4 (5.0-14.0) mmol/L BUN 19 H (7-18) mg/dL Creatinine 1.0 (0.6-1.0) mg/dL Est Cr Clr Drug Dosing 39.47 mL/min Estimated GFR (MDRD) 54 L (>60) Glucose 115 H (74-106) mg/dL Lactic Acid 1.0 (0.4-2.0) mmol/L Calcium 9.2 (8.5-10.1) mg/dL Total Bilirubin 0.5 (0.2-1.0) mg/dL AST 17 (15-37) U/L ALT 36 (12-78) U/L Alkaline Phosphatase 60 (46-116) U/L Total Protein 6.5 (6.4-8.2) g/dL Albumin 3.4 (3.4-5.0) g/dL Globulin 3.1 (2.3-3.5) g/dL Albumin/Globulin Ratio 1.1 L (1.2-2.2) Urine Color (YELLOW) Urine Appearance (CLEAR) Urine pH (5.0-8.0) Ur Specific [place] (1.008-1.030) Urine Protein (NEGATIVE) mg/dL Urine Glucose (UA) (NEGATIVE) mg/dL Urine Ketones (NEGATIVE) mg/dL Urine Occult Blood (NEGATIVE) Urine Nitrite (NEGATIVE) Urine Bilirubin (NEGATIVE) Urine Urobilinogen (0.2-1.0) EU/dL Ur Leukocyte Esterase (NEGATIVE) Urine RBC (0-5) Urine WBC (0-5) Ur Epithelial Cells Amorphous Sediment Urine Bacteria Urine Mucus 01/17/21 Range/Units 04:00 WBC (4.5-11.0) K/uL RBC (3.30-5.50) M/uL Hgb (12.0-15.0) g/dL Hct (36.0-48.0) % MCV (80-98) fL MCH (27-31) pg MCHC (32-36) % Plt Count (150-400) K/uL Neut % (Auto) (36-66) % Lymph % (Auto) (24-44) % [place] % (Auto) (2-6) % Eos % (Auto) (2-4) % Baso % (Auto) (0-1) % PT (9.5-12.0) sec INR (0.80-1.20) APTT (27.0-36.0) sec Sodium 143 (140-148) mmol/L Potassium 3.8 (3.6-5.2) mmol/L Chloride 107 (100-108) mmol/L Carbon Dioxide 25 (21-32) mmol/L Anion Gap 11.4 (5.0-14.0) mmol/L BUN 18 (7-18) mg/dL Creatinine 1.0 (0.6-1.0) mg/dL Est Cr Clr Drug Dosing 39.39 mL/min Estimated GFR (MDRD) 54 L (>60) Glucose 102 (74-106) mg/dL Lactic Acid (0.4-2.0) mmol/L Calcium 7.9 L (8.5-10.1) mg/dL Total Bilirubin (0.2-1.0) mg/dL AST (15-37) U/L ALT (12-78) U/L Alkaline Phosphatase (46-116) U/L Total Protein (6.4-8.2) g/dL Albumin (3.4-5.0) g/dL Globulin (2.3-3.5) g/dL Albumin/Globulin Ratio (1.2-2.2) Urine Color (YELLOW) Urine Appearance (CLEAR) Urine pH (5.0-8.0) Ur Specific [place] (1.008-1.030) Urine Protein (NEGATIVE) mg/dL Urine Glucose (UA) (NEGATIVE) mg/dL Urine Ketones (NEGATIVE) mg/dL Urine Occult Blood (NEGATIVE) Urine Nitrite (NEGATIVE) Urine Bilirubin (NEGATIVE) Urine Urobilinogen (0.2-1.0) EU/dL Ur Leukocyte Esterase (NEGATIVE) Urine RBC (0-5) Urine WBC (0-5) Ur Epithelial Cells Amorphous Sediment Urine Bacteria Urine Mucus Result Diagrams: 01/17/21 04:00 01/17/21 04:00 [facility]on Results Last 24 hrs: Microbiology 01/16/21 20:13 Urine Culture - Preliminary Urine, Quick Cath (In-Out) Sepsis Event Note - Evaluation Sepsis Screening Result: No Definite Risk - Focused Exam Vital Signs: Vital Signs Temp Temp Pulse Resp BP Pulse Ox 01/17/21 09:43 37.1 C 65 18 112/56 L 98 01/17/21 07:00 36.8 C 76 18 109/53 L 93 L 01/17/21 02:00 38.7 C H 72 16 134/34 L 96 01/17/21 01:49 38.7 C H 01/16/21 23:00 38.1 C 72 18 85/40 L 96 - Problem List & Annotations (1) Acute cystitis without hematuria SNOMED Code(s): 73427125 Code(s): N30.00 - ACUTE CYSTITIS WITHOUT HEMATURIA Status: Acute Current Visit: Yes (2) Alzheimer's dementia with behavioral disturbance SNOMED Code(s): 5567136697474 Code(s): G30.9 - ALZHEIMER'S DISEASE, UNSPECIFIED; F02.81 - DEMENTIA IN OTH DISEASES CLASSD ELSWHR W BEHAVIORAL DISTURB Status: Chronic Current Visit: Yes Qualifiers: Alzheimer's disease onset: late-onset Qualified Code(s): G30.1 - Alzheimer's disease with late onset; F02.81 - Dementia in other diseases classified elsewhere with behavioral disturbance - Problem List Review Problem List Initiated/Reviewed/Updated: Yes - My Orders Last 24 Hours: My Active Orders 01/16/21 21:06 Resuscitation Status Routine 01/16/21 22:00 cefTRIAXone [Rocephin] 1 gm Sodium Chloride 0.9% [Normal Saline] 50 ml IV Q24H 01/16/21 22:06 Acetaminophen [TylenoL] 650 mg PO Q4H PRN Docusate Sodium/Sennosides [Senna Plus] 1 tab PO BID PRN Donepezil [Aricept] 10 mg PO BEDTIME Haloperidol Lactate [Haldol] 1 mg IVPUSH Q4H PRN Ibuprofen [Motrin] 600 mg PO Q6H PRN Magnesium Hydroxide [Milk of Magnesia] 30 ml PO Q12H PRN Melatonin 9 mg PO BEDTIME Ondansetron [Zofran ODT] 4 mg PO Q6H PRN Ondansetron [Zofran] 4 mg IV Q6H PRN risperiDONE [RisperiDAL] 1 mg PO BID 01/16/21 22:06 Patient Status [ADT] Routine Antiembolic Devices [RC] .Routine Intake and Output [RC] QSHIFT Notify Provider Vital Signs [RC] ASDIRECTED Oxygen Therapy [RC] PRN Up With Assistance [RC] ASDIRECTED Vital Signs [RC] Q4H Sequential Compression Device [OM.PC] Routine 01/17/21 07:00 PT Evaluation and Treatment [CONS] Routine 01/17/21 09:00 FLUoxetine [PROzac] 40 mg PO DAILY Hypromellose [GenTeal Mild to Moderate Ophth Soln] 1 ml EYEBOTH BID lisinopriL [Prinivil] 2.5 mg PO DAILY - Plan Plan:: ASSESSMENT AND PLAN - Acute cystitis without hematuria-still confused compared to baseline. White count slightly better. Vital signs stable. Urine culture pending but so far is growing a gram-negative mary. -Ceftriaxone -Follow-up urine culture -Saline lock IV -Symptomatic management of fever -Physical therapy Fall-patient is impulsive and unable to follow directions for the most part. No apparent injuries from the fall. -Close monitoring with tab alarm Alzheimer's dementia with behavioral disturbance-history of previous stays at behavioral units. She has had difficulty with auditory hallucinations. No significant behavior issues so far. -Continue outpatient management including risperidone -Melatonin at bedtime Maintenance issues - -DVT prophylaxis-mechanical -GI prophylaxis-not indicated -Nutrition-regular diet CODE STATUS -unable to reach her [place]tan to talk about this tonight. I cannot find any previous documentation. She will be full code until we can talk about it with her . Admission justification -this patient will be admitted for observation to initiate antibiotics and IV fluids. She is not safe for management at home because of her frequent falls and advanced dementia. Disposition -I anticipate discharge back to her assisted living after the hospital stay Primary care physician -Dr. Madonna Miller M.D.
[2021-01-17] MEDS: Acetaminophen 325 MG Tab PO PRN (10:57)
[2021-01-17] MEDS: Hypromellose 0.3% Ophth Soln 15 ML Bottle EYEBOTH SCH ×2 (13:18→21:14)
[2021-01-17] MEDS: FLUOXETINE 40MG **PTOM PO SCH (13:19)
[2021-01-17] MEDS: RISPERIDONE 1 MG PO SCH ×2 (13:20→21:14)
[2021-01-17] MEDS: LISINOPRIL 2.5 MG PO SCH (13:33)
[2021-01-17] MEDS ORDERED: Donepezil 10 MG **PTOM PO SCH (21:00)
[2021-01-17] MEDS: Melatonin 3 MG Tab PO SCH (21:18)
[2021-01-17] MEDS: cefTRIAXone 1 GM in Sodium Chloride 0.9% 50 ML IV SCH (22:07)
[2021-01-18] MEDS: Acetaminophen 325 MG Tab PO PRN (09:03)
[2021-01-18] MEDS: LISINOPRIL 2.5 MG PO SCH (09:04)
[2021-01-18] MEDS: RISPERIDONE 1 MG PO SCH (09:04)
[2021-01-18] MEDS: FLUOXETINE 40MG **PTOM PO SCH (09:04)
[2021-01-18] MEDS: Hypromellose 0.3% Ophth Soln 15 ML Bottle EYEBOTH SCH (09:05)
--- NOTE | 2021-01-18 09:48 | PCM.DCSUM1 ---
Discharge Summary - Hospital Course Brief History: 75-year-old female with history of dementia with behavioral disturbances who presented with recurrent falls and lethargy. She was admitted for observation and management of a urinary tract infection. Diagnosis: Stroke: No - Discharge Data Discharge Date: 01/18/21 Discharge Disposition: Home, W Home Health Agency 06 Condition: Good - Referral to Home Health Date of Face to Face Encounter: 01/18/21 Reason for Homebound Status: weakness and balance issues caused but UTI Primary Care Physician: PCP None Skilled Need: Nursing, PT - Discharge Diagnosis/Problem(s) (1) Acute cystitis without hematuria SNOMED Code(s): 25580502 ICD Code: N30.00 - ACUTE CYSTITIS WITHOUT HEMATURIA Status: Acute Current Visit: Yes (2) Alzheimer's dementia with behavioral disturbance SNOMED Code(s): 5446332619530 ICD Code: G30.9 - ALZHEIMER'S DISEASE, UNSPECIFIED; F02.81 - DEMENTIA IN OTH DISEASES CLASSD ELSWHR W BEHAVIORAL DISTURB Status: Chronic Current Visit: Yes Qualifiers: Alzheimer's disease onset: late-onset Qualified Code(s): G30.1 - Alzheimer's disease with late onset; F02.81 - Dementia in other diseases classified elsewhere with behavioral disturbance - Patient Summary/Data Consults: Consultations 01/17/21 07:00 PT Evaluation and Treatment [CONS] Routine Please Evaluate and Treat. PT Reason for Consult: Strengthening This query below is only for informational purposes and is not editable. Labs Pending at D/C: Final results of urine culture, this was growing a gram-negative mary at the time of discharge Hospital Course: Aura presented to the emergency room with increased confusion and 2 falls at home. Work-up in the emergency room did reveal evidence for a urinary tract infection. Vital signs were stable and labs were unremarkable other than mild leukocytosis. Urine culture was set up in the lab. She was started on ceftriaxone. She received some IV fluids in the emergency room. She was admitted to the hospital for observation and additional management. We did continue IV fluids overnight but then her IV was saline locked the next morning. We continued ceftriaxone from the emergency room through the hospital stay. The morning after admission the patient was a little better but still quite c onfused and quite weak. By the morning of discharge she has improved dramatically. She is smiling and content. Her strength has improved dramatically and she was able to ambulate long distance down the hallway. No major behavior issues during the course of the hospital stay. Vital signs have all remained stable. Her urine culture is still pending at the time of discharge but since she has improved so dramatically with ceftriaxone the plan is for her to be on cefdinir for 3 more days after hospital discharge. She will be discharged back to her assisted living facility with her . - Patient Instructions Diet: Regular Diet as Tolerated Activity: As Tolerated Showering/Bathing: May Shower Other/Special Instructions: 1. You were in the hospital for management of increased confusion and falls caused by a urinary tract infection. Your condition has improved with IV fluid hydration and antibiotic administration. I do recommend ongoing antibiotic therapy after hospital discharge. Please take cefdinir (Omnicef) 300 mg twice daily with food for six doses. Your first dose outside of the hospital will be due tonight around 9 PM. 2. Continue your usual home medications as previously prescribed. 3. Follow-up as scheduled or sooner if your symptoms do not continue to get better or if they get worse. - Discharge Plan *PRESCRIPTION DRUG MONITORING PROGRAM REVIEWED*: Not Applicable *COPY OF PRESCRIPTION DRUG MONITORING REPORT IN PATIENT TRAE: Not Applicable Prescriptions/Med Rec: Cefdinir 300 mg PO BID #6 capsule Home Medications: Home Meds Cholecalciferol (Vitamin D3) [Vitamin D3] 50 mcg PO DAILY 01/16/21 [History] Donepezil HCl [Aricept] 10 mg PO BEDTIME 01/16/21 [History] FLUoxetine HCl [Prozac] 40 mg PO DAILY 01/16/21 [History] LORazepam [Ativan] 0.5 mg PO BID PRN 01/16/21 [History] Loratadine 10 mg PO ASDIRECTED 01/16/21 [History] Mv-Min/Iron/Folic/Calcium/Vitk [Women's Multivitamin Tablet] 1 tab PO DAILY 01/16/21 [History] Propylene Glycol/PEG 400/Pf [Systane 0.3-0.4% Eye Drop] 1 drop EYEBOTH BID 01/16/21 [History] lisinopriL [Lisinopril] 2.5 mg PO DAILY 01/16/21 [History] risperiDONE [Risperdal] 1 mg PO BID 01/16/21 [History] Cefdinir 300 mg PO BID #6 capsule 01/18/21 [Rx] Oxygen Therapy Mode: Room Air Patient Handouts: Cefdinir Capsules, Urinary Tract Infection, Adult Referrals: Madonna Azar MD [Ordering Only Provider] - 01/24/21 2:30 pm (YOUR APPOINTMENT WITH DR. AZAR IS AT THE [facility] ([facility] Arrive 15 minutes early to register for your appointment.) - Discharge Summary/Plan Comment DC Time >30 min.: Yes (35-set up home health care ) - Patient Data Vitals - Most Recent: Last Vital Signs Temp 35.7 C L 01/18/21 09:00 Pulse 65 01/18/21 09:00 Resp 16 01/18/21 09:00 BP 116/52 L 01/18/21 09:04 Pulse Ox 99 01/18/21 09:00 Weight - Most Recent: 49.804 kg I&O - Last 24 hours: Intake & Output 01/17/21 01/18/21 01/18/21 22:59 06:59 14:59 Intake Total 410 300 360 Output Total 150 200 Balance 260 300 160 FARHAD Results - Last 24 hrs: Microbiology 01/16/21 20:13 Urine Culture - Preliminary Urine, Quick Cath (In-Out) Med Orders - Current: Current Medications Acetaminophen (Acetaminophen 325 Mg Tab) 650 mg PO Q4H PRN PRN Reason: Pain (Mild 1-3)/fever Last Admin: 01/18/21 09:03 Dose: 650 mg Documented by: Artificial Tears (Hypromellose 0.3% Ophth Soln 15 Ml Bottle) 1 ml EYEBOTH BID [facility] Last Admin: 01/18/21 09:05 Dose: Not Given Documented by: Donepezil HCl (Donepezil 10 Mg Ptom) 10 mg PO BEDTIME TRUNG Last Admin: 01/17/21 21:13 Dose: 10 mg Documented by: Haloperidol Lactate (Haloperidol Lactate 5 Mg/Ml Sdv) 1 mg IVPUSH Q4H PRN PRN Reason: Agitation Last Admin: 01/17/21 19:59 Dose: 1 mg Documented by: Ceftriaxone Sodium 1 gm/ (Sodium Chloride) 50 mls @ 100 mls/hr IV Q24H [facility] Last Admin: 01/17/21 22:07 Dose: 100 mls/hr Documented by: Ibuprofen (Ibuprofen 600 Mg Tab) 600 mg PO Q6H PRN PRN Reason: Pain/Fever Last Admin: 01/17/21 01:49 Dose: 600 mg Documented by: Lisinopril (Lisinopril 2.5 Mg Ptom) 2.5 mg PO DAILY [facility] Last Admin: 01/18/21 09:04 Dose: 2.5 mg Documented by: Magnesium Hydroxide (Magnesium Hydroxide 400 Mg/5 Ml Susp 30 Ml Cup) 30 ml PO Q12H PRN PRN Reason: Constipation Melatonin (Melatonin 3 Mg Tab) 9 mg PO BEDTIME [facility] Last Admin: 01/17/21 21:18 Dose: 9 mg Documented by: Ondansetron HCl (Ondansetron 4 Mg/2 Ml Sdv) 4 mg IV Q6H PRN PRN Reason: Nausea/Vomiting Ondansetron HCl (Ondansetron 4 Mg Tab.Dis) 4 mg PO Q6H PRN PRN Reason: Nausea able to take PO Fluoxetine 40mg (Ptom) 0 each PO DAILY [facility] Last Admin: 01/18/21 09:04 Dose: 1 each Documented by: Risperidone (Risperidone 1 Mg Ptom) 1 mg PO BID [facility] Last Admin: 01/18/21 09:04 Dose: 1 mg Documented by: Senna/Docusate Sodium (Docusate Sodium/Sennosides 50-8.6 Mg Tab) 1 tab PO BID PRN PRN Reason: Constipation Discontinued Medications Acetaminophen (Acetaminophen 500 Mg Tab) 1,000 mg PO ONETIME ONE Stop: 01/16/21 20:16 Last Admin: 01/16/21 20:23 Dose: 1,000 mg Documented by: Donepezil HCl (Donepezil 10 Mg Tab) 10 mg PO BEDTIME [facility] Last Admin: 01/16/21 22:21 Dose: 10 mg Documented by: Sodium Chloride (Normal Saline) 1,000 mls @ 999 mls/hr IV .BOLUS ONE Stop: 01/16/21 21:14 Last Admin: 01/16/21 20:22 Dose: 999 mls/hr Documented by: Sodium Chloride (Normal Saline) 1,000 mls @ 125 mls/hr IV ASDIRECTED [facility] Stop: 01/17/21 06:07 Last Admin: 01/16/21 22:18 Dose: 125 mls/hr Documented by: Risperidone (Risperidone 1 Mg Tab) 1 mg PO BID [facility] Last Admin: 01/16/21 22:32 Dose: 1 mg Documented by:
== END 2021-01-18 11:40 | disposition home health service (06) ==
LOC: EDBD 16:58 → JP.ED 16:58 → JP.MS 21:04 → MERGE 21:04
PROVIDERS: ADMIT Internal Medicine; ATTEND Internal Medicine
DX: N30.00 Acute cystitis without hematuria (principal); G30.9 Alzheimer's disease, unspecified; F02.81 Dementia in other diseases classified elsewhere, unspecified severity, with behavioral disturbance; E78.00 Pure hypercholesterolemia, unspecified; I10 Essential (primary) hypertension; Z88.0 Allergy status to penicillin; Z88.2 Allergy status to sulfonamides; Z79.899 Other long term (current) drug therapy
CPT/HCPCS: 36415; 70450; 72125; 72170; 80048; 80053; 81001; 83605; 85025; 85027; 85610; 85730; 87086; 87088; 87186; 96365; 96375; 96376; 97110; 97116; 97162; 97535; 99284; 99285; A9270; G0378; J0696; J1630; J7030

== ENCOUNTER 2021-01-20 09:21 | Emergency (ER) | payer MEDICARE ==
--- NOTE | 2021-01-20 10:17 | EDM.PDOCBH ---
ED HPI GENERAL MEDICAL PROBLEM - General Chief Complaint: Behavioral/Psych Stated Complaint: MEDICAL [facility]IA [facility] Time Seen by Provider: 01/20/21 10:01 Source of Information: Reports: Patient, EMS, RN Notes Reviewed History Limitations: Reports: Physical Impairment - History of Present Illness INITIAL COMMENTS - FREE TEXT/NARRATIVE: 75-year-old female presents emergency department today via EMS services, she was recently discharged from the hospital for weakness and urinary tract infection. Known history of dementia with behavioral disturbances. EMS services were called today by her who is her primary care provider he states he is having problems with her medical compliance as she is refusing her psychiatric medications but did take the antibiotics and wants her further evaluated. She does communicate with me but it is intermittent if I asked about why she is not taking her medications or problems she is having at home she does not respond if I talked to her about pain or agreeing to physical exam or blood work she is communicative. Back Pain Score (Numeric/FACES): 10 - Related Data Allergies Allergy/AdvReac Type Severity Reaction Status Date / Time Penicillins Allergy Other Verified 01/20/21 10:19 Sulfa (Sulfonamide Allergy Other Verified 01/20/21 10:19 Antibiotics) Home Meds: Home Meds Acetaminophen 650 mg PO Q4HR PRN 01/20/21 [History] Cefdinir 300 mg PO BID 01/20/21 [History] Cholecalciferol (Vitamin D3) [Vitamin D3] 50 mcg PO DAILY 01/20/21 [History] Dextran 70/Hypromellose [Artificial Tears] 1 drop EYEBOTH BID 01/20/21 [History] Donepezil HCl 10 mg PO BEDTIME 01/20/21 [History] FLUoxetine HCl [Prozac] 40 mg PO DAILY 01/20/21 [History] LORazepam [Ativan] 0.5 mg PO BID PRN 01/20/21 [History] Loratadine 10 mg PO ASDIRECTED 01/20/21 [History] Multivitamin-Min/Iron/FA/Vit K [Multi-Day Plus Minerals Tablet] 1 tab PO DAILY 0 01/20/21 [History] Propylene Glycol/PEG 400/Pf [Systane 0.3-0.4% Eye Drop] 1 drop EYEBOTH BID 01/20/21 [History] lisinopriL [Lisinopril] 2.5 mg PO DAILY 01/20/21 [History] risperiDONE [Risperdal] 1 mg PO BID 01/20/21 [History] Past Medical History Neurological History: Reports: Other (See Below) (Dementia with behavioral disturbances) - Past Surgical History Other HEENT Surgeries/Procedures: Unable to obtain pt history d/t mental status at this time. Social & Family History - Tobacco Use Tobacco Use Status *Q: Never Tobacco User - Caffeine Use Caffeine Use: Reports: None - Recreational Drug Use Recreational Drug Use: No ED ROS GENERAL - Review of Systems Review Of Systems: Unable To Obtain Reason Not Obtained: Dementia with behavioral disturbances ED EXAM, BEHAVIORAL HEALTH - Physical Exam Exam: See Below Exam Limited By: Physical Impairment General Appearance: Alert, No Apparent Distress Eye Exam: Bilateral Eye: Normal Inspection Respiratory/Chest: No Respiratory Distress, Lungs Clear, Normal Breath Sounds, No Accessory Muscle Use, Chest Non-Tender Cardiovascular: Regular Rate, Rhythm, No Murmur GI/Abdominal: Soft, Non-Tender COURSE, BEHAVIORAL HEALTH COMP - Course Vital Signs: Last Vital Signs Temp 97.9 F 01/20/21 09:24 Pulse 50 L 01/20/21 09:24 Resp 16 01/20/21 09:24 BP 138/63 01/20/21 09:24 Pulse Ox 92 L 01/20/21 09:24 Orders, Labs, Meds: Laboratory Tests 01/20/21 01/20/21 01/20/21 Range/Units 10:30 10:30 11:17 WBC 7.4 (4.5-11.0) K/uL RBC 4.02 (3.30-5.50) M/uL Hgb 12.7 (12.0-15.0) g/dL Hct 37.8 (36.0-48.0) % MCV 94 (80-98) fL MCH 32 H (27-31) pg MCHC 34 (32-36) % Plt Count 268 (150-400) K/uL Neut % (Auto) 74.2 H (36-66) % Lymph % (Auto) 13.8 L (24-44) % [place] % (Auto) 11.1 H (2-6) % Eos % (Auto) 0.4 L (2-4) % Baso % (Auto) 0.5 (0-1) % Sodium 144 (140-148) mmol/L Potassium 3.6 (3.6-5.2) mmol/L Chloride 107 (100-108) mmol/L Carbon Dioxide 28 (21-32) mmol/L Anion Gap 8.6 (5.0-14.0) mmol/L BUN 11 (7-18) mg/dL Creatinine 0.8 (0.6-1.0) mg/dL Est Cr Clr Drug Dosing 44.99 mL/min Estimated GFR (MDRD) > 60 (>60) Glucose 102 (74-106) mg/dL Lactic Acid 0.7 (0.4-2.0) mmol/L Calcium 8.4 L (8.5-10.1) mg/dL Total Bilirubin 0.3 (0.2-1.0) mg/dL AST 12 L (15-37) U/L ALT 34 (12-78) U/L Alkaline Phosphatase 69 (46-116) U/L C-Reactive Protein (0.0-0.3) mg/dL Total Protein 5.8 L (6.4-8.2) g/dL Albumin 2.3 L (3.4-5.0) g/dL Globulin 3.5 (2.3-3.5) g/dL Albumin/Globulin Ratio 0.7 L (1.2-2.2) Urine Color (YELLOW) Urine Appearance (CLEAR) Urine pH (5.0-8.0) Ur Specific [place] (1.008-1.030) Urine Protein (NEGATIVE) mg/dL Urine Glucose (UA) (NEGATIVE) mg/dL Urine Ketones (NEGATIVE) mg/dL Urine Occult Blood (NEGATIVE) Urine Nitrite (NEGATIVE) Urine Bilirubin (NEGATIVE) Urine Urobilinogen (0.2-1.0) EU/dL Ur Leukocyte Esterase (NEGATIVE) Urine RBC (0-5) Urine WBC (0-5) Ur Epithelial Cells Amorphous Sediment Urine Bacteria Urine Mucus 01/20/21 01/20/21 Range/Units 11:17 12:04 WBC (4.5-11.0) K/uL RBC (3.30-5.50) M/uL Hgb (12.0-15.0) g/dL Hct (36.0-48.0) % MCV (80-98) fL MCH (27-31) pg MCHC (32-36) % Plt Count (150-400) K/uL Neut % (Auto) (36-66) % Lymph % (Auto) (24-44) % Tate % (Auto) (2-6) % Eos % (Auto) (2-4) % Baso % (Auto) (0-1) % Sodium (140-148) mmol/L Potassium (3.6-5.2) mmol/L Chloride (100-108) mmol/L Carbon Dioxide (21-32) mmol/L Anion Gap (5.0-14.0) mmol/L BUN (7-18) mg/dL Creatinine (0.6-1.0) mg/dL Est Cr Clr Drug Dosing mL/min Estimated GFR (MDRD) (>60) Glucose (74-106) mg/dL Lactic Acid (0.4-2.0) mmol/L Calcium (8.5-10.1) mg/dL Total Bilirubin (0.2-1.0) mg/dL AST (15-37) U/L ALT (12-78) U/L Alkaline Phosphatase (46-116) U/L C-Reactive Protein 5.22 H (0.0-0.3) mg/dL Total Protein (6.4-8.2) g/dL Albumin (3.4-5.0) g/dL Globulin (2.3-3.5) g/dL Albumin/Globulin Ratio (1.2-2.2) Urine Color Yellow (YELLOW) Urine Appearance Clear (CLEAR) Urine pH 6.0 (5.0-8.0) Ur Specific [place] 1.020 (1.008-1.030) Urine Protein Negative (NEGATIVE) mg/dL Urine Glucose (UA) Negative (NEGATIVE) mg/dL Urine Ketones 15 H (NEGATIVE) mg/dL Urine Occult Blood Negative (NEGATIVE) Urine Nitrite Negative (NEGATIVE) Urine Bilirubin Negative (NEGATIVE) Urine Urobilinogen 0.2 (0.2-1.0) EU/dL Ur Leukocyte Esterase Negative (NEGATIVE) Urine RBC Not seen (0-5) Urine WBC 0-5 (0-5) Ur Epithelial Cells Rare Amorphous Sediment Not seen Urine Bacteria Rare Urine Mucus Rare Medications Discontinued Medications Generic Name Dose Route Start Last Admin Trade Name Freq PRN Reason Stop Dose Admin Risperidone 1 mg 01/20/21 14:10 01/20/21 14:28 Risperidone 1 Mg Tab PO 01/20/21 14:11 1 mg NOW STA Administration Departure - Departure Time of Disposition: 14:36 Disposition: Home, Self-Care 01 Condition: Poor Clinical Impression: Dementia with behavioral problem Qualifiers: Dementia type: unspecified type Qualified Code(s): F03.91 - Unspecified dementia with behavioral disturbance - Discharge Information Instructions: Dementia Referrals: PCP,None [Primary Care Provider] - Forms: ED Department Discharge Additional Instructions: Continue working with home health for medicine distribution, your psychiatrist is aware of the situation please keep follow-up appointments with him as well. Call return to the emergency department for worsening of symptoms. Sepsis Event Note (ED) - Evaluation Sepsis Screening Result: No Definite Risk - Focused Exam Vital Signs: Vital Signs Temp Pulse Resp BP Pulse Ox 01/20/21 09:24 97.9 F 50 L 16 138/63 92 L - Assessment/Plan Plan: Assessment Acuity = acute Site and laterality = dementia with behavioral disorder Etiology = unknown Manifestations = none Location of injury = Home Lab values = CBC unremarkable CMP unremarkable CRP elevated 5.22 of uncertain significance urinalysis unremarkable lactic acid within normal limits Plan I did call and discussed the case with Dr. Palomo psychiatrist at [facility] at 1400. Talked about these behavior issues he states he has been seeing this family for about 7 months he does admit that the will intervene in his treatment plan stops course of therapy midway before he has a chance to evaluate. He is very aware of the situation we talked about IM Risperdal possibly as an alternative however that would require a court order discharge planning was present. They were able to work out a plan with home health which she is going to administer medications this has been set up from her prior hospitalization. We also discussed this with the who is agreeing to work with home health on medication distribution rather than him doing it himself. This note was dictated using [employer] voice recognition software please call with any questions on syntax or grammar.
[2021-01-20] MEDS ORDERED: risperiDONE 1 MG Tab PO STA (14:10)
== END 2021-01-20 14:58 | disposition home or self-care (01) ==
LOC: JP.ED 09:21
DX: F03.91 Unspecified dementia, unspecified severity, with behavioral disturbance (principal); Z88.0 Allergy status to penicillin; Z88.2 Allergy status to sulfonamides; Z79.899 Other long term (current) drug therapy
CPT/HCPCS: 36415; 80053; 81001; 83605; 85025; 86140; 99284; A9270-GY

== ENCOUNTER 2021-04-15 07:46 | Emergency (ER) | payer MEDICARE ==
--- NOTE | 2021-04-15 08:29 | EDM.PDOC ---
ED HPI GENERAL MEDICAL PROBLEM - General Chief Complaint: General Stated Complaint: DEPRESSION/FOUND ON FLOOR BY SPOUSE Time Seen by Provider: 04/15/21 08:05 Source of Information: Reports: Patient, EMS, Family History Limitations: Reports: Altered Mental Status, Physical Impairment - History of Present Illness INITIAL COMMENTS - FREE TEXT/NARRATIVE: 75-year-old female who has chronic severe depression and schizoaffective disorder, also has been struggling with recent UTI and C. difficile has been undergoing electroshock therapy and had a treatment yesterday. It was recomm ended she be in the hospital during this current treatment, but she wanted to try to go home. She is having marked difficulty with weakness, they found her at the bedside this morning and she is usually fairly mobile but she could barely sit up or roll over in her bed. No evidence of focal injury. Ambulance was called because the now wishes that he would have kept her in the hospital during these treatments. Yesterday was her first "near normal" bowel movement since starting on the vancomycin. I really cannot get any history from the patient, however when I asked her to sit up so I can listen to her back she did follow instructions and sit up pretty much by herself with little assistance. Onset: Unknown/Unsure Associated Symptoms: Reports: Confusion, Malaise, Weakness. Denies: Shortness of Breath - Related Data Allergies Allergy/AdvReac Type Severity Reaction Status Date / Time Penicillins Allergy Other Verified 01/20/21 14:46 Sulfa (Sulfonamide Allergy Other Verified 01/20/21 14:46 Antibiotics) Home Meds: Home Meds Cholecalciferol (Vitamin D3) [Vitamin D3] 50 mcg PO DAILY 01/16/21 [History] Donepezil HCl [Aricept] 10 mg PO BEDTIME 01/16/21 [History] FLUoxetine HCl [Prozac] 40 mg PO DAILY 01/16/21 [History] LORazepam [Ativan] 0.5 mg PO BID PRN 01/16/21 [History] Loratadine 10 mg PO ASDIRECTED 01/16/21 [History] Mv-Min/Iron/Folic/Calcium/Vitk [Women's Multivitamin Tablet] 1 tab PO DAILY 01/16/21 [History] Propylene Glycol/PEG 400/Pf [Systane 0.3-0.4% Eye Drop] 1 drop EYEBOTH BID 01/16/21 [History] lisinopriL [Lisinopril] 2.5 mg PO DAILY 01/16/21 [History] risperiDONE [Risperdal] 1 mg PO BEDTIME 01/16/21 [History] Acetaminophen 650 mg PO Q4HR PRN 01/20/21 [History] Vancomycin [Vancocin 125 MG Capsule] 125 mg PO QID 04/15/21 [History] cloZAPine 50 mg PO BEDTIME 04/15/21 [History] Past Medical History HEENT History: Reports: Cataract Cardiovascular History: Reports: High Cholesterol, Hypertension Respiratory History: Reports: Sleep Apnea, SOB Musculoskeletal History: Reports: Fibromyalgia, Other (See Below), Osteoarthritis Other Musculoskeletal History: bursitis Neurological History: Reports: Other (See Below) Psychiatric History: Reports: Depression, Hallucinations, Other (See Below), Schizophrenia Other Psychiatric History: mood disorder. catatonic schizophrenia. schizoaffective disorder - Infectious Disease History Infectious Disease History: Reports: C-Difficile - Past Surgical History Other HEENT Surgeries/Procedures: Unable to obtain pt history d/t mental status at this time. Social & Family History - Family History Family Medical History: Unobtainable - Tobacco Use Tobacco Use Status *Q: Never Tobacco User - Caffeine Use Caffeine Use: Reports: None ED ROS GENERAL - Review of Systems Review Of Systems: See Below Reason Not Obtained: Review of systems obtained from the Constitutional: Denies: Fever, Chills Respiratory: Reports: Other (No chronic pulmonary history). Denies: Cough GI/Abdominal: Reports: Other (Bowel movements are normalizing with the vancomycin treatment). Denies: Nausea, Vomiting : Reports: Other (Recent UTI) Neurological: Reports: Confusion, Other (Severe depression and schizoaffective disorder) Psychiatric: Reports: Depression ED EXAM, GENERAL - Physical Exam Exam: See Below Exam Limited By: No Limitations General Appearance: Other (Patient keeps her eyes closed, significant depression of mental alertness but aware of surroundings) Eye Exam: Bilateral Eye: PERRL Head: Atraumatic Neck: Supple, Non-Tender Respiratory/Chest: Other (Patient initially had some crackles in the left lung but it cleared after a few breaths, breath sounds within normal) Cardiovascular: Regular Rate, Rhythm. No: Tachycardia GI/Abdominal: Soft, Non-Tender Extremities: Other (Some bruising on the right wrist from recent IV starts, otherwise no traumatic findings) Neurological: Inattentive, Slow to Respond Psychiatric: Depressed Mood, Flat Affect Skin Exam: Warm, Dry Course - Vital Signs Last Recorded V/S: Last Vital Signs Temp 97.5 F 04/15/21 08:07 Pulse 59 L 04/15/21 08:07 Resp 16 04/15/21 08:07 BP 137/57 L 04/15/21 08:07 Pulse Ox 93 L 04/15/21 08:07 - Orders/Labs/Meds Labs: Laboratory Tests 04/15/21 04/15/21 04/15/21 Range/Units 08:23 08:23 08:31 WBC 8.6 (4.5-11.0) K/uL RBC 3.55 (3.30-5.50) M/uL Hgb 11.0 L (12.0-15.0) g/dL Hct 32.8 L (36.0-48.0) % MCV 92 (80-98) fL MCH 31 (27-31) pg MCHC 34 (32-36) % Plt Count 230 (150-400) K/uL Neut % (Auto) 74.4 H (36-66) % Lymph % (Auto) 14.7 L (24-44) % [place] % (Auto) 10.8 H (2-6) % Eos % (Auto) 0.0 L (2-4) % Baso % (Auto) 0.1 (0-1) % Sodium 146 (140-148) mmol/L Potassium 3.4 L (3.6-5.2) mmol/L Chloride 106 (100-108) mmol/L Carbon Dioxide 28 (21-32) mmol/L Anion Gap 15.4 H (5.0-14.0) mmol/L BUN 8 (7-18) mg/dL Creatinine 0.8 (0.6-1.0) mg/dL Est Cr Clr Drug Dosing 44.85 mL/min Estimated GFR (MDRD) > 60 (>60) Glucose 96 (74-106) mg/dL Calcium 8.5 (8.5-10.1) mg/dL Urine Color Yellow (YELLOW) Urine Appearance Clear (CLEAR) Urine pH 8.0 (5.0-8.0) Ur Specific [place] 1.020 (1.008-1.030) Urine Protein Negative (NEGATIVE) mg/dL Urine Glucose (UA) Negative (NEGATIVE) mg/dL Urine Ketones Negative (NEGATIVE) mg/dL Urine Occult Blood Negative (NEGATIVE) Urine Nitrite Negative (NEGATIVE) Urine Bilirubin Negative (NEGATIVE) Urine Urobilinogen 0.2 (0.2-1.0) EU/dL Ur Leukocyte Esterase Negative (NEGATIVE) Urine RBC Not seen (0-5) Urine WBC Not seen (0-5) Ur Epithelial Cells Not seen Amorphous Sediment Not seen Urine Bacteria Not seen Urine Mucus Few - Re-Assessments/Exams Free Text/Narrative Re-Assessment/Exam: 04/15/21 08:30 I 1 view chest x-ray will be obtained as well as a CBC and BMP and a mini cath UA. I think I will call [facility] asked them if they would consider hospitalizing her until her electroconvulsive therapy treatments are finished this week. 04/15/21 09:33 Mini cath UA is normal, CBC and BMP are reassuring. Chest x-ray looks negative. I discussed her case with [facility] in [place], they are checking for bed status but some likely they will have a bed for her so she may have to just go back tomorrow for her ECT. They are going to call back. 04/15/21 10:35 Patient rested quietly over the next hour, very stable. Staff called back and do not have any openings either in psychiatry or other medical floor, and she can be reassessed after her ECT tomorrow for possible admission. I do not feel she needs to be admitted at another facility until then. This will be discussed with the when he returns. Departure - Departure Time of Disposition: 11:15 Disposition: [facility] Clinical Impression: Dementia with psychosis Alzheimer's dementia with behavioral disturbance Qualifiers: Alzheimer's disease onset: late-onset Qualified Code(s): G30.1 - Alzheimer's disease with late onset - Discharge Information Instructions: Alzheimer Disease Caregiver Guide Referrals: Nabeel Mercado MD [Primary Care Provider] - Forms: ED Department Discharge Care Plan Goals: Continue current medications, keep your appointment tomorrow for your ECT and return anytime if worsening or concerns. Sepsis Event Note (ED) - Evaluation Sepsis Screening Result: No Definite Risk - Focused Exam Vital Signs: Vital Signs Temp Pulse Resp BP Pulse Ox 04/15/21 08:07 97.5 F 59 L 16 137/57 L 93 L 04/15/21 07:56 97.5 F 59 L 16 137/57 L 93 L
--- NOTE | 2021-04-15 09:06 | CR ---
CHEST: 2 view CLINICAL HISTORY:Mental status change, weakness COMPARISON:None FINDINGS: The heart size, pulmonary vascularity and hilar structures are normal. No infiltrate effusion or pneumothorax is seen. Lungs are emphysematous. There are atherosclerotic changes in the aorta. IMPRESSION: No acute cardiopulmonary process. Emphysematous changes
== END 2021-04-15 11:19 ==
LOC: JP.ED 07:46
DX: F29 Unspecified psychosis not due to a substance or known physiological condition (principal); G30.1 Alzheimer's disease with late onset; F02.80 Dementia in other diseases classified elsewhere, unspecified severity, without behavioral disturbance, psychotic disturbance, mood disturbance, and anxiety; E78.00 Pure hypercholesterolemia, unspecified; I10 Essential (primary) hypertension; Z88.0 Allergy status to penicillin; Z88.2 Allergy status to sulfonamides; Z79.899 Other long term (current) drug therapy
CPT/HCPCS: 36415; 71045; 71045-26; 80048; 81001; 85025; 99285-25

== ENCOUNTER 2021-05-11 10:16 | Emergency (ER) | payer MEDICARE ==
--- NOTE | 2021-05-11 10:57 | EDM.PDOC ---
ED HPI GENERAL MEDICAL PROBLEM - General Chief Complaint: General Stated Complaint: FEELS WEAK Time Seen by Provider: 05/11/21 10:56 Source of Information: Reports: Patient, Family ( good historian) History Limitations: Reports: No Limitations - History of Present Illness INITIAL COMMENTS - FREE TEXT/NARRATIVE: Aura is a 75 year old female with significant history of recent C dif infection (1 month ago post treatment) UTI 2 months ago post treatment) whom receives ECT treatments for extensive mental health concerns, whom presents with general weakness, malaise, decreased appetite and unsteady gait. Aura is brought to ER by for evaluation due to increase in symptoms over the last 3-5 days. Aura did not eat support last night and was not interested in breakfast this am but did drink ample amounts of water and juice. Aura's is a excellent caregiver at home and give history. Aura does not offered much in way of complaints or history during assessment. Aura's orthotic/prosthetic clinician is through [facility] and [facility] in [place]. Aura's reports weekly blood testing due to mental health medication noted elevated WBC this week, was concerned about infection or return of C dif. colitis. - Related Data Allergies Allergy/AdvReac Type Severity Reaction Status Date / Time Penicillins Allergy Other Verified 01/20/21 14:46 Sulfa (Sulfonamide Allergy Other Verified 01/20/21 14:46 Antibiotics) Home Meds: Home Meds Cholecalciferol (Vitamin D3) [Vitamin D3] 50 mcg PO DAILY 01/16/21 [History] Donepezil HCl [Aricept] 10 mg PO BEDTIME 01/16/21 [History] FLUoxetine HCl [Prozac] 40 mg PO DAILY 01/16/21 [History] LORazepam [Ativan] 0.5 mg PO BID PRN 01/16/21 [History] Loratadine 10 mg PO ASDIRECTED 01/16/21 [History] Mv-Min/Iron/Folic/Calcium/Vitk [Women's Multivitamin Tablet] 1 tab PO DAILY 01/16/21 [History] Propylene Glycol/PEG 400/Pf [Systane 0.3-0.4% Eye Drop] 1 drop EYEBOTH BID 01/16/21 [History] lisinopriL [Lisinopril] 2.5 mg PO DAILY 01/16/21 [History] risperiDONE [Risperdal] 0.5 mg PO BEDTIME 01/16/21 [History] Acetaminophen 650 mg PO Q4HR PRN 01/20/21 [History] cloZAPine 50 mg PO BEDTIME 04/15/21 [History] Ondansetron [Zofran ODT] 4 mg PO Q6H PRN 2 Days #10 tab.dis 05/11/21 [Rx] cephALEXin [Keflex] 500 mg PO Q8H 10 Days #30 cap 05/11/21 [Rx] Past Medical History HEENT History: Reports: Cataract Cardiovascular History: Reports: High Cholesterol, Hypertension Respiratory History: Reports: Sleep Apnea, SOB Musculoskeletal History: Reports: Fibromyalgia, Other (See Below), Osteoarthritis Other Musculoskeletal History: bursitis Neurological History: Reports: Other (See Below) Other Neuro History: ect treatments Psychiatric History: Reports: Depression, Hallucinations, Other (See Below), Schizophrenia Other Psychiatric History: mood disorder. catatonic schizophrenia. schizoaffective disorder - Infectious Disease History Infectious Disease History: Reports: C-Difficile, Chicken Pox - Past Surgical History Other HEENT Surgeries/Procedures: Unable to obtain pt history d/t mental status at this time. Social & Family History - Family History Family Medical History: Unobtainable - Tobacco Use Tobacco Use Status *Q: Never Tobacco User - Caffeine Use Caffeine Use: Reports: Coffee - Recreational Drug Use Recreational Drug Use: No ED ROS GENERAL - Review of Systems Review Of Systems: Comprehensive ROS is negative, except as noted in HPI. ED EXAM, GENERAL - Physical Exam Exam: See Below Exam Limited By: Other (minimal verbal responses, delayed and soft spoken.) General Appearance: No Apparent Distress Eye Exam: Bilateral Eye: Normal Inspection Ears: Normal External Exam, Normal Canal, Hearing Grossly Normal Ear Exam: Bilateral Ear: TM normal Nose: Normal Inspection Throat/Mouth: Normal Inspection, Normal Lips, No Airway Compromise Head: Atraumatic, Normocephalic Neck: Normal Inspection, Non-Tender, Full Range of Motion Respiratory/Chest: No Respiratory Distress, Lungs Clear, Normal Breath Sounds Cardiovascular: Normal Peripheral Pulses, Regular Rate, Rhythm GI/Abdominal: Normal Bowel Sounds, Non-Tender, No Distention, No Mass Back Exam: Normal Inspection, Full Range of Motion Extremities: Normal Inspection, Normal Range of Motion Neurological: Alert, Oriented, CN II-XII Intact Skin Exam: Warm, Dry, Intact #1 Interpretation EKG Date: 05/11/21 Time: 11:21 Rhythm: NSR Rate (Beats/Min): 75 [place]: RAD-Right [place] Deviation P-Wave: Present QRS: Wide ST-T: Elevated (Mild elevation noted in inferior leads.) QT: Normal Comparison: NA - No Prior EKG (None available) Course - Vital Signs Last Recorded V/S: Last Vital Signs Temp 36.4 C 05/11/21 10:31 Pulse 69 05/11/21 12:03 Resp 15 05/11/21 12:03 BP 113/57 L 05/11/21 12:03 Pulse Ox 95 05/11/21 12:03 - Orders/Labs/Meds Orders: Active Orders 24 hr Category Date Time Status Cardiac Monitoring [RC] .As Directed Care 05/11/21 10:59 Active Peripheral IV Care [RC] . DIRECTED Care 05/11/21 10:59 Active Vital Signs [RC] PFP Care 05/11/21 10:58 Active Chest 2V [CR] Stat Exams 05/11/21 10:58 Taken CULTURE BLOOD [BC] Urgent Lab 05/11/21 11:10 Received CULTURE BLOOD [BC] Urgent Lab 05/11/21 11:20 Received CULTURE URINE [RM] Stat Lab 05/11/21 12:27 Received Sodium Chloride 0.9% [Normal Saline] 1,000 ml Med 05/11/21 12:15 Active IV ASDIRECTED Sodium Chloride 0.9% [Saline Flush] Med 05/11/21 10:58 Active 10 ml FLUSH ASDIRECTED PRN Blood Culture x2 Reflex Set [OM.PC] Urgent Oth 05/11/21 10:58 Ordered Peripheral IV Insertion Adult [OM.PC] Urgent Oth 05/11/21 10:58 Ordered EKG 12 Lead [EK] Urgent Ther 05/11/21 10:58 Ordered Medication Orders Sodium Chloride (Normal Saline) 1,000 mls @ 500 mls/hr IV ASDIRECTED TRUNG Last Admin: 05/11/21 12:18 Dose: 500 mls/hr Documented by: DEDRA Sodium Chloride (Sodium Chloride 0.9% 10 Ml Syringe) 10 ml FLUSH ASDIRECTED PRN PRN Reason: Keep Vein Open Labs: Laboratory Tests 09/12/21 09/12/21 09/12/21 Range/Units 10:58 11:20 11:20 WBC 21.6 H (4.5-11.0) K/uL RBC 3.81 (3.30-5.50) M/uL Hgb 11.5 L (12.0-15.0) g/dL Hct 35.6 L (36.0-48.0) % MCV 93 (80-98) fL MCH 30 (27-31) pg MCHC 32 (32-36) % Plt Count 519 H (150-400) K/uL Neut % (Auto) 89.4 H (36-66) % Lymph % (Auto) 3.8 L (24-44) % [place] % (Auto) 6.8 H (2-6) % Eos % (Auto) 0.0 L (2-4) % Baso % (Auto) 0.0 (0-1) % Sodium (140-148) mmol/L Potassium (3.6-5.2) mmol/L Chloride (100-108) mmol/L Carbon Dioxide (21-32) mmol/L Anion Gap (5.0-14.0) mmol/L BUN (7-18) mg/dL Creatinine (0.6-1.0) mg/dL Est Cr Clr Drug Dosing mL/min Estimated GFR (MDRD) (>60) Glucose (74-106) mg/dL Lactic Acid (0.4-2.0) mmol/L Calcium (8.5-10.1) mg/dL Total Bilirubin (0.2-1.0) mg/dL AST (15-37) U/L ALT (12-78) U/L Alkaline Phosphatase (46-116) U/L Troponin I < 0.017 (0.000-0.056) ng/mL C-Reactive Protein 1.17 H (0.0-0.3) mg/dL Total Protein (6.4-8.2) g/dL Albumin (3.4-5.0) g/dL Globulin (2.3-3.5) g/dL Albumin/Globulin Ratio (1.2-2.2) Urine Color (YELLOW) Urine Appearance (CLEAR) Urine pH (5.0-8.0) Ur Specific [place] (1.008-1.030) Urine Protein (NEGATIVE) mg/dL Urine Glucose (UA) (NEGATIVE) mg/dL Urine Ketones (NEGATIVE) mg/dL Urine Occult Blood (NEGATIVE) Urine Nitrite (NEGATIVE) Urine Bilirubin (NEGATIVE) Urine Urobilinogen (0.2-1.0) EU/dL Ur Leukocyte Esterase (NEGATIVE) Urine RBC (0-5) Urine WBC (0-5) Ur Epithelial Cells Amorphous Sediment Urine Bacteria Urine Mucus SARS CoV-2 RNA Rapid GRACE Negative 05/11/21 05/11/21 05/11/21 Range/Units 11:20 11:20 11:35 WBC (4.5-11.0) K/uL RBC (3.30-5.50) M/uL Hgb (12.0-15.0) g/dL Hct (36.0-48.0) % MCV (80-98) fL MCH (27-31) pg MCHC (32-36) % Plt Count (150-400) K/uL Neut % (Auto) (36-66) % Lymph % (Auto) (24-44) % [place] % (Auto) (2-6) % Eos % (Auto) (2-4) % Baso % (Auto) (0-1) % Sodium 139 L (140-148) mmol/L Potassium 4.5 (3.6-5.2) mmol/L Chloride 101 (100-108) mmol/L Carbon Dioxide 28 (21-32) mmol/L Anion Gap 14.5 H (5.0-14.0) mmol/L BUN 18 D (7-18) mg/dL Creatinine 1.3 H D (0.6-1.0) mg/dL Est Cr Clr Drug Dosing 26.47 mL/min Estimated GFR (MDRD) 40 L (>60) Glucose 142 H (74-106) mg/dL Lactic Acid 2.4 H (0.4-2.0) mmol/L Calcium 9.2 (8.5-10.1) mg/dL Total Bilirubin 0.2 (0.2-1.0) mg/dL AST 16 (15-37) U/L ALT 28 (12-78) U/L Alkaline Phosphatase 87 (46-116) U/L Troponin I (0.000-0.056) ng/mL C-Reactive Protein (0.0-0.3) mg/dL Total Protein 6.4 (6.4-8.2) g/dL Albumin 2.6 L (3.4-5.0) g/dL Globulin 3.8 H (2.3-3.5) g/dL Albumin/Globulin Ratio 0.7 L (1.2-2.2) Urine Color Yellow (YELLOW) Urine Appearance Turbid A (CLEAR) Urine pH 7.0 (5.0-8.0) Ur Specific [place] 1.025 (1.008-1.030) Urine Protein >=300 H (NEGATIVE) mg/dL Urine Glucose (UA) Negative (NEGATIVE) mg/dL Urine Ketones Negative (NEGATIVE) mg/dL Urine Occult Blood Moderate H (NEGATIVE) Urine Nitrite Positive H (NEGATIVE) Urine Bilirubin Negative (NEGATIVE) Urine Urobilinogen 0.2 (0.2-1.0) EU/dL Ur Leukocyte Esterase Large H (NEGATIVE) Urine RBC 30-40 H (0-5) Urine WBC Packed H (0-5) Ur Epithelial Cells Not seen Amorphous Sediment Not seen Urine Bacteria Many Urine Mucus Few SARS CoV-2 RNA Rapid GRACE Meds: Medications Generic Name Dose Route Start Last Admin Trade Name Fremark PRN Reason Stop Dose Admin Sodium Chloride 1,000 mls @ 500 mls/hr 05/11/21 12:15 05/11/21 12:18 Normal Saline IV 500 mls/hr ASDIRECTED TRUNG Administration Sodium Chloride 10 ml 05/11/21 10:58 Sodium Chloride 0.9% 10 Ml Syringe FLUSH ASDIRECTED PRN Keep Vein Open Discontinued Medications Generic Name Dose Route Start Last Admin Trade Name Davidq PRN Reason Stop Dose Admin Ceftriaxone Sodium 1 gm/ 50 mls @ 100 mls/hr 05/11/21 12:07 05/11/21 12:18 Sodium Chloride IV 05/11/21 12:36 100 mls/hr ONETIME ONE Administration Ondansetron HCl 4 mg 05/11/21 12:08 05/11/21 12:19 Ondansetron 4 Mg/2 Ml Sdv IVPUSH 05/11/21 12:09 4 mg ONETIME ONE Administration - Re-Assessments/Exams Free Text/Narrative Re-Assessment/Exam: 05/11/21 11:29 Assessment with completed. Rapid ER COVID testing negative. Patient and have both received COVID vaccines. C dif testing will be completed when loose stool available during ER visit. Took blood and urine test results to patient's room to discuss with patient and . was not available at time of visit. Reported positive Urine infection with patient whom seemed to understand information. Rocephin was infusing without acute reaction noted. Zofran for nausea and ordered and patient reported feeling hungry. Plan today is discharge home with close follow-in clinic this week, with outpatient treatment with Keflex 500mg TID x 10days with UC ordered and pending. Under normal conditions may consider admission to ensure po intake and ability to take oral antibiotic after initial IV antibiotic treatment, no available hospital bed at this facility and dies not met need for higher level of care at this time. 05/11/21 12:34 Nursing staff to contact to discuss ER evaluation and disposition plan. 05/11/21 13:49 Departure - Departure Time of Disposition: 14:20 Disposition: Home, Self-Care 01 Clinical Impression: UTI, Urinary tract infectious disease - Discharge Information Prescriptions: cephALEXin [Keflex] 500 mg PO Q8H 10 Days #30 cap Ondansetron [Zofran ODT] 4 mg PO Q6H PRN 2 Days #10 tab.dis PRN Reason: Vomiting Instructions: Urinary Tract Infection, Adult, Urosepsis, Adult Referrals: Nabeel Mercado MD [Primary Care Provider] - Forms: ED Department Discharge Sepsis Event Note (ED) - Focused Exam Vital Signs: Vital Signs Temp Pulse Resp BP Pulse Ox 05/11/21 12:03 69 15 113/57 L 95 05/11/21 10:31 36.4 C 81 20 119/62 95 - My Orders Last 24 Hours: My Active Orders 05/11/21 10:58 Vital Signs [RC] PFP Chest 2V [CR] Stat Sodium Chloride 0.9% [Saline Flush] 10 ml FLUSH ASDIRECTED PRN Blood Culture x2 Reflex Set [OM.PC] Urgent Peripheral IV Insertion Adult [OM.PC] Urgent EKG 12 Lead [EK] Urgent 05/11/21 10:59 Cardiac Monitoring [RC] .As Directed Peripheral IV Care [RC] . DIRECTED 05/11/21 11:10 CULTURE BLOOD [BC] Urgent 05/11/21 11:20 CULTURE BLOOD [BC] Urgent 05/11/21 12:15 Sodium Chloride 0.9% [Normal Saline] 1,000 ml IV ASDIRECTED 05/11/21 12:27 CULTURE URINE [RM] Stat - Assessment/Plan Last 24 Hours: My Active Orders 05/11/21 10:58 Vital Signs [RC] PFP Chest 2V [CR] Stat Sodium Chloride 0.9% [Saline Flush] 10 ml FLUSH ASDIRECTED PRN Blood Culture x2 Reflex Set [OM.PC] Urgent Peripheral IV Insertion Adult [OM.PC] Urgent EKG 12 Lead [EK] Urgent 05/11/21 10:59 Cardiac Monitoring [RC] .As Directed Peripheral IV Care [RC] . DIRECTED 05/11/21 11:10 CULTURE BLOOD [BC] Urgent 05/11/21 11:20 CULTURE BLOOD [BC] Urgent 05/11/21 12:15 Sodium Chloride 0.9% [Normal Saline] 1,000 ml IV ASDIRECTED 05/11/21 12:27 CULTURE URINE [RM] Stat
[2021-05-11] MEDS ORDERED: Sodium Chloride 0.9% 10 ML Syringe FLUSH PRN (10:58)
[2021-05-11] MEDS ORDERED: cefTRIAXone 1 GM in Sodium Chloride 0.9% 50 ML IV ONE (12:07)
[2021-05-11] MEDS ORDERED: Ondansetron 4 MG/2 ML SDV IVPUSH ONE (12:08)
[2021-05-11] MEDS ORDERED: Sodium Chloride 0.9% 1,000 ML IV SCH (12:15)
--- NOTE | 2021-05-12 09:11 | CR ---
CHEST: 2 view CLINICAL HISTORY:Weakness COMPARISON:04/15/2021 FINDINGS: The heart size, pulmonary vascularity and hilar structures are normal. No infiltrate effusion or pneumothorax is seen. There are atherosclerotic changes in the aorta. IMPRESSION: No acute cardiopulmonary process.
== END 2021-05-11 14:39 | disposition home or self-care (01) ==
LOC: JP.ED 10:16
DX: N39.0 Urinary tract infection, site not specified (principal); I10 Essential (primary) hypertension; M19.90 Unspecified osteoarthritis, unspecified site; Z88.0 Allergy status to penicillin; Z88.2 Allergy status to sulfonamides; Z79.899 Other long term (current) drug therapy; Z20.822 Contact with and (suspected) exposure to COVID-19
CPT/HCPCS: 36415; 71046; 80053; 81001; 83605; 84484; 85025; 86140; 87040; 87086; 87088; 87186; 93005; 96365; 96375; 99285; J0696; J2405; J7030; U0002

== ENCOUNTER 2021-05-11 19:58 | Observation (INO) | payer MEDICARE ==
[2021-05-11] MEDS ORDERED: Sodium Chloride 0.9% 10 ML Syringe FLUSH PRN (20:03)
[2021-05-11] MEDS ORDERED: Sodium Chloride 0.9% 1,000 ML IV SCH (20:15)
--- NOTE | 2021-05-11 20:25 | EDM.PDOC ---
ED HPI GENERAL MEDICAL PROBLEM - General Chief Complaint: Behavioral/Psych Stated Complaint: MEDICAL VIA [facility]TH Time Seen by Provider: 05/11/21 20:19 Source of Information: Reports: Patient, EMS - History of Present Illness INITIAL COMMENTS - FREE TEXT/NARRATIVE: Aura is a 75 year old female whom presents to ER with increased confusion and decreased LOC this evening. became concerned about her change in mood and called EMS to transport her to ER for evaluation. Aura was evaluated earlier today for generalized weakness and concerns regarding UTI. Urinalysis confirmed infection with BC and UC pending, treated with Rocephin and discharge on Keflex. No previous UC where available for comparison. I visited with patient, whom reported she felt better than earlier today and did not know why she as brought back to the ER. Please see my previous ER note for details regarding recent illness and ECT treatments for mental health history. Previous blood tests reviewed and repeat lactic acid ordered to ensure improvement after previous ER visit and treatment interventions. - Related Data Allergies Allergy/AdvReac Type Severity Reaction Status Date / Time Penicillins Allergy Other Verified 05/11/21 20:10 Sulfa (Sulfonamide Allergy Other Verified 05/11/21 20:10 Antibiotics) Home Meds: Home Meds Cholecalciferol (Vitamin D3) [Vitamin D3] 50 mcg PO DAILY 01/16/21 [History] Donepezil HCl [Aricept] 10 mg PO BEDTIME 01/16/21 [History] FLUoxetine HCl [Prozac] 40 mg PO DAILY 01/16/21 [History] LORazepam [Ativan] 0.5 mg PO BID PRN 01/16/21 [History] Loratadine 10 mg PO ASDIRECTED 01/16/21 [History] Mv-Min/Iron/Folic/Calcium/Vitk [Women's Multivitamin Tablet] 1 tab PO DAILY 01/16/21 [History] Propylene Glycol/PEG 400/Pf [Systane 0.3-0.4% Eye Drop] 1 drop EYEBOTH BID 01/16/21 [History] lisinopriL [Lisinopril] 2.5 mg PO DAILY 01/16/21 [History] risperiDONE [Risperdal] 0.5 mg PO BEDTIME 01/16/21 [History] Acetaminophen 650 mg PO Q4HR PRN 01/20/21 [History] cloZAPine 50 mg PO BEDTIME 04/15/21 [History] Ondansetron [Zofran ODT] 4 mg PO Q6H PRN 2 Days #10 tab.dis 05/11/21 [Rx] cephALEXin [Keflex] 500 mg PO Q8H 10 Days #30 cap 05/11/21 [Rx] Past Medical History HEENT History: Reports: Cataract Cardiovascular History: Reports: High Cholesterol, Hypertension Respiratory History: Reports: Sleep Apnea, SOB Musculoskeletal History: Reports: Fibromyalgia, Other (See Below), Osteoarth ritis Other Musculoskeletal History: bursitis Neurological History: Reports: Other (See Below) Other Neuro History: ect treatments Psychiatric History: Reports: Depression, Hallucinations, Other (See Below), Schizophrenia Other Psychiatric History: mood disorder. catatonic schizophrenia. schizoaffective disorder - Infectious Disease History Infectious Disease History: Reports: C-Difficile, Chicken Pox - Past Surgical History Other HEENT Surgeries/Procedures: Unable to obtain pt history d/t mental status at this time. Social & Family History - Family History Family Medical History: Unobtainable - Tobacco Use Tobacco Use Status *Q: Never Tobacco User - Caffeine Use Caffeine Use: Reports: Coffee - Recreational Drug Use Recreational Drug Use: No ED ROS GENERAL - Review of Systems Review Of Systems: Unable To Obtain Reason Not Obtained: slow to respond and not available ED EXAM, GENERAL - Physical Exam Exam: See Below Exam Limited By: Altered Mental Status (fatigued, responds to verbal stimuli and answers questions with a shoft spoken voice) Eye Exam: Bilateral Eye: Normal Inspection Ears: Hearing Grossly Normal Nose: Normal Inspection Throat/Mouth: Normal Inspection Head: Atraumatic Neck: Normal Inspection Respiratory/Chest: No Respiratory Distress, Lungs Clear, Normal Breath Sounds Cardiovascular: Normal Peripheral Pulses GI/Abdominal: Soft, Non-Tender Neurological: Alert, Slow to Respond Psychiatric: Depressed Mood, Flat Affect Course - Vital Signs Last Recorded V/S: Last Vital Signs Temp 36.3 C 05/11/21 20:00 Pulse 80 05/11/21 20:00 Resp 16 05/11/21 20:00 BP 134/61 05/11/21 20:00 Pulse Ox 94 L 05/11/21 20:00 - Orders/Labs/Meds Orders: Active Orders 24 hr Category Date Time Status Peripheral IV Care [RC] . DIRECTED Care 05/11/21 20:03 Active Sodium Chloride 0.9% [Normal Saline] 1,000 ml Med 05/11/21 20:15 Active IV ASDIRECTED Sodium Chloride 0.9% [Saline Flush] Med 05/11/21 20:03 Active 10 ml FLUSH ASDIRECTED PRN Peripheral IV Insertion Adult [OM.PC] Urgent Oth 05/11/21 20:03 Ordered Medication Orders Sodium Chloride (Normal Saline) 1,000 mls @ 500 mls/hr IV ASDIRECTED TRUNG Last Admin: 05/11/21 20:28 Dose: 500 mls/hr Documented by: PREILOR Sodium Chloride (Sodium Chloride 0.9% 10 Ml Syringe) 10 ml FLUSH ASDIRECTED PRN PRN Reason: Keep Vein Open Last Admin: 05/11/21 20:28 Dose: 10 ml Documented by: PREILOR Labs: Laboratory Tests 05/11/21 Range/Units 20:39 Lactic Acid 1.8 (0.4-2.0) mmol/L Meds: Medications Generic Name Dose Route Start Last Admin Trade Name Freq PRN Reason Stop Dose Admin Sodium Chloride 1,000 mls @ 500 mls/hr 05/11/21 20:15 05/11/21 20:28 Normal Saline IV 500 mls/hr ASDIRECTED TRUNG Administration Sodium Chloride 10 ml 05/11/21 20:03 05/11/21 20:28 Sodium Chloride 0.9% 10 Ml Syringe FLUSH 10 ml ASDIRECTED PRN Administration Keep Vein Open - Re-Assessments/Exams Free Text/Narrative Re-Assessment/Exam: Visited with patient regarding return to ER due to increased fatigue and 's concerns via EMS. Considered admission, but under observation status, during previous visit, was OK with discharge back to assisted living facility and feeling improved. Contacted hospitalist regarding admission due to failed discharge home due to concerns regarding decreased LOC and fatigue. 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 features and with catatonia, Dementia with psychosis, Generalized weakness, Recurrent falls Urinary tract infection Qualifiers: Urinary tract infection type: acute cystitis Hematuria presence: with hematuria Qualified Code(s): N30.01 - Acute cystitis with hematuria Alzheimer's dementia with behavioral disturbance Qualifiers: Alzheimer's disease onset: late-onset Qualified Code(s): G30.1 - Alzheimer's disease with late onset - Discharge Information Referrals: Nabeel Mercado MD [Primary Care Provider] - Forms: ED Department Discharge Sepsis Event Note (ED) - Focused Exam Vital Signs: Vital Signs Temp Pulse Resp BP Pulse Ox 05/11/21 20:00 36.3 C 80 16 134/61 94 L - My Orders Last 24 Hours: My Active Orders 05/11/21 20:03 Peripheral IV Care [RC] . DIRECTED Sodium Chloride 0.9% [Saline Flush] 10 ml FLUSH ASDIRECTED PRN Peripheral IV Insertion Adult [OM.PC] Urgent 05/11/21 20:15 Sodium Chloride 0.9% [Normal Saline] 1,000 ml IV ASDIRECTED - Assessment/Plan Last 24 Hours: My Active Orders 05/11/21 20:03 Peripheral IV Care [RC] . DIRECTED Sodium Chloride 0.9% [Saline Flush] 10 ml FLUSH ASDIRECTED PRN Peripheral IV Insertion Adult [OM.PC] Urgent 05/11/21 20:15 Sodium Chloride 0.9% [Normal Saline] 1,000 ml IV ASDIRECTED
--- NOTE | 2021-05-11 21:27 | PCM.HP.2 ---
H&P History of Present Illness - General Date of Service: 05/11/21 Admit Problem/Dx: Admission Diagnosis/Problem Admission Diagnosis/Problem Acute cystitis without hematuria Source of Information: Patient, Provider History Limitations: Reports: Altered Mental Status (minimal interactions ) - History of Present Illness Initial Comments - Free Text/Narative: CC: I wasn't feeling so good earlier HPI: Aura presents to the emergency room again this evening with weakness. She was evaluated in the emergency room earlier and diagnosed with a urinary tract infection. She received a dose of ceftriaxone, 1 L of fluids and a prescription for outpatient antibiotics. Her felt she was doing well enough to go home. After he got home he felt she was too weak and sent her back by ambulance. She provides very little history. She is able to tell me that she is feeling a little better after the antibiotics and fluids. She does say yes when I ask if she is having pain but is not able to tell me where her pain is at or what it feels like. After the initial 2 or 3 questions she quit answering and closed her eyes and sat there quietly. It is unclear how many days she has been sick for. Her vital signs have been stable since her return visit. She has not had fevers during her emergency room stay. Work-up earlier revealed a white count of 20,000 and mild elevation of lactic acid at 2.4. Her vitals were all stable. Urine strongly suggestive of infection. She received a dose of ceftriaxone and some fluids and was sent home. Repeat lactic acid this evening is normal. Vitals remained stable. - Related Data Allergies/Adverse Reactions: Allergies Allergy/AdvReac Type Severity Reaction Status Date / Time Penicillins Allergy Other Verified 05/11/21 20:10 Sulfa (Sulfonamide Allergy Other Verified 05/11/21 20:10 Antibiotics) Home Medications: Home Meds Cholecalciferol (Vitamin D3) [Vitamin D3] 50 mcg PO DAILY 01/16/21 [History] Donepezil HCl [Aricept] 10 mg PO BEDTIME 01/16/21 [History] FLUoxetine HCl [Prozac] 40 mg PO DAILY 01/16/21 [History] LORazepam [Ativan] 0.5 mg PO BID PRN 01/16/21 [History] Loratadine 10 mg PO ASDIRECTED 01/16/21 [History] Mv-Min/Iron/Folic/Calcium/Vitk [Women's Multivitamin Tablet] 1 tab PO DAILY 01/16/21 [History] Propylene Glycol/PEG 400/Pf [Systane 0.3-0.4% Eye Drop] 1 drop EYEBOTH BID 01/16/21 [History] lisinopriL [Lisinopril] 2.5 mg PO DAILY 01/16/21 [History] risperiDONE [Risperdal] 0.5 mg PO BEDTIME 01/16/21 [History] Acetaminophen 650 mg PO Q4HR PRN 01/20/21 [History] cloZAPine 50 mg PO BEDTIME 04/15/21 [History] Ondansetron [Zofran ODT] 4 mg PO Q6H PRN 2 Days #10 tab.dis 05/11/21 [Rx] cephALEXin [Keflex] 500 mg PO Q8H 10 Days #30 cap 05/11/21 [Rx] Past Medical History HEENT History: Reports: Cataract Cardiovascular History: Reports: High Cholesterol, Hypertension Respiratory History: Reports: Sleep Apnea, SOB Musculoskeletal History: Reports: Fibromyalgia, Other (See Below), Osteoarthritis Other Musculoskeletal History: bursitis Neurological History: Reports: Other (See Below) Other Neuro History: ect treatments Psychiatric History: Reports: Depression, Hallucinations, Other (See Below), Schizophrenia Other Psychiatric History: mood disorder. catatonic schizophrenia. schizoaffective disorder - Infectious Disease History Infectious Disease History: Reports: C-Difficile, Chicken Pox - Past Surgical History Other HEENT Surgeries/Procedures: Unable to obtain pt history d/t mental status at this time. Social & Family History - Family History Family Medical History: Unobtainable - Tobacco Use Tobacco Use Status *Q: Never Tobacco User - Caffeine Use Caffeine Use: Reports: Coffee - Recreational Drug Use Recreational Drug Use: No H&P Review of Systems - Review of Systems: Review Of Systems: Unable To Obtain Reason Not Obtained: pt answered very few of my questions other than outline in HPI Exam - Exam Exam: See Below - Vital Signs Vital Signs: Last Vital Signs Temp 36.3 C 05/11/21 20:00 Pulse 80 05/11/21 20:00 Resp 16 05/11/21 20:00 BP 134/61 05/11/21 20:00 Pulse Ox 94 L 05/11/21 20:00 Weight: 43.5 kg - Exam Quality Assessment: No: Supplemental Oxygen General: Alert. No: Oriented, Cooperative, Mild Distress HEENT: Mucosa Moist & [place]. No: Conjunctiva Clear Lungs: Clear to Auscultation, Normal Respiratory Effort Cardiovascular: Regular Rate, Regular Rhythm GI/Abdominal Exam: Normal Bowel Sounds, Soft, Non-Tender, No Distention Extremities: No Pedal Edema. No: Increased Warmth Peripheral Pulses: 2+: Dorsalis Pedis (L), Dorsalis Pedis (R) Skin: Warm, Dry Neuro Extensive - Mental Status: Alert, Disorientation to Place, Slow Response to Commands. No: Oriented x3 Neuro Extensive - Motor, Sensory, Reflexes: No: Dysarthria, Abnormal Motor, Tremor Psychiatric: Alert, Normal Affect - Patient Data Lab Results Last 24 hrs: Laboratory Results - last 24 hr 05/11/21 Range/Units 20:39 Lactic Acid 1.8 (0.4-2.0) mmol/L Sepsis Event Note - Focused Exam Vital Signs: Vital Signs Temp Pulse Resp BP Pulse Ox 05/11/21 20:00 36.3 C 80 16 134/61 94 L *Q Meaningful Use (ADM) - VTE Risk Assess *Q Each Risk Factor Represents 1 Point: None Total Score 1 Point Risk Factors: 0 Each Risk Factor Represents 2 Points: Age 60 - 74 Years Total Score 2 Point Risk Factors: 2 Each Risk Factor Represents 3 Points: None Total Score 3 Point Risk Factors: 0 Each Risk Factor Represents 5 Points: None Total Score 5 Point Risk Factors: 0 Venous Thromboembolism Risk Factor Score *Q: 2 - Problem List (1) Acute cystitis without hematuria SNOMED Code(s): 64475821 ICD Code: N30.00 - ACUTE CYSTITIS WITHOUT HEMATURIA Status: Acute Current Visit: No (2) Alzheimer's dementia with behavioral disturbance SNOMED Code(s): 4501206040637 ICD Code: G30.9 - ALZHEIMER'S DISEASE, UNSPECIFIED; F02.81 - DEMENTIA IN OTH DISEASES CLASSD ELSWHR W BEHAVIORAL DISTURB Status: Chronic Current Visit: Yes Qualifiers: Alzheimer's disease onset: late-onset Qualified Code(s): G30.1 - Alzheimer's disease with late onset; F02.81 - Dementia in other diseases classified elsewhere with behavioral disturbance Problem List Initiated/Reviewed/Updated: Yes Orders Last 24hrs: Active Orders 24 hr Category Date Time Status Patient Status Manage Transfer [TRANSFER] Routine ADT 05/11/21 21:17 Ordered Peripheral IV Care [RC] . DIRECTED Care 05/11/21 20:03 Active Sodium Chloride 0.9% [Normal Saline] 1,000 ml Med 05/11/21 20:15 Active IV ASDIRECTED Sodium Chloride 0.9% [Saline Flush] Med 05/11/21 20:03 Active 10 ml FLUSH ASDIRECTED PRN Peripheral IV Insertion Adult [OM.PC] Urgent Oth 05/11/21 20:03 Ordered Resuscitation Status Routine Resus Stat 05/11/21 21:19 Ordered Medication Orders Sodium Chloride (Normal Saline) 1,000 mls @ 500 mls/hr IV ASDIRECTED TRUNG Last Admin: 05/11/21 20:28 Dose: 500 mls/hr Documented by: PREILOR Sodium Chloride (Sodium Chloride 0.9% 10 Ml Syringe) 10 ml FLUSH ASDIRECTED PRN PRN Reason: Keep Vein Open Last Admin: 05/11/21 20:28 Dose: 10 ml Documented by: PREILOR Assessment/Plan Comment:: ASSESSMENT AND PLAN - Acute cystitis without hematuria-manifestations including weakness and poor intake. No evidence for sepsis. feels she is too weak to be safe at home. Urine culture pending. She received antibiotics at noon today. -Continue ceftriaxone every 24 hours -Follow-up culture -Probiotics -Physical therapy in the morning Alzheimer's dementia with behavioral disturbance-previous psychotic episodes and 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 Multiple visits to the behavioral units. is her caregiver at home. -Continue home medications Maintenance issues - -DVT prophylaxis-mechanical -GI prophylaxis-not indicated -Nutrition-regular -Forde catheter-not indicated CODE STATUS -full code Admission justification -this patient will be admitted to observation for additional antibiotic therapy and physical therapy Disposition -I anticipate discharge home after the hospital stay Primary care physician -[facility] Mike Miller M.D. - Mortality Measure Prognosis:: Good
[2021-05-11] MEDS ORDERED: Ondansetron 4 MG Tab.DIS PO PRN (21:46)
[2021-05-11] MEDS ORDERED: Magnesium Hydroxide 400 MG/5 ML Susp 30 ML Cup PO PRN (21:46)
[2021-05-11] MEDS ORDERED: LORazepam 2 MG/ML SDV IVPUSH PRN (21:46)
[2021-05-11] MEDS ORDERED: Ondansetron 4 MG/2 ML SDV IV PRN (21:46)
[2021-05-11] MEDS ORDERED: Acetaminophen 325 MG Tab PO PRN (21:46)
[2021-05-11] MEDS ORDERED: LORazepam 0.5 MG Tab PO PRN (21:46)
[2021-05-11] MEDS: Donepezil 10 MG Tab PO SCH ×2 (22:18→22:32)
[2021-05-11] MEDS: risperiDONE 1 MG Tab PO SCH ×2 (22:19→22:33)
[2021-05-11] MEDS: Lactobacillus Rhamnosus GG (Probiotic) Cap PO SCH (22:19)
[2021-05-11] MEDS: Melatonin 3 MG Tab PO SCH (22:19)
[2021-05-12] MEDS: FLUoxetine 20 MG Cap PO SCH (08:43)
[2021-05-12] MEDS: Lactobacillus Rhamnosus GG (Probiotic) Cap PO SCH ×2 (08:43→20:43)
[2021-05-12] MEDS: cefTRIAXone 1 GM in Sodium Chloride 0.9% 50 ML IV SCH (13:52)
--- NOTE | 2021-05-12 14:40 | PCM.PN ---
- General Info Date of Service: 05/12/21 Subjective Update: Ms. Lima is a 75-year-old woman who was admitted through the emergency department early this morning with weakness secondary to urinary tract infection. She is feeling somewhat improved since admission. She does have longstanding history of severe depression. Functional Status: Reports: Tolerating Diet, Ambulating, Urinating - Review of Systems General: Reports: Weakness, Fatigue. Denies: Fever, Chills Pulmonary: Reports: No Symptoms Cardiovascular: Reports: No Symptoms Gastrointestinal: Reports: No Symptoms Genitourinary: Reports: No Symptoms - Patient Data Vitals - Most Recent: Last Vital Signs Temp 96.8 F L 05/12/21 11:35 Pulse 73 05/12/21 11:35 Resp 16 05/12/21 11:35 BP 111/55 L 05/12/21 11:35 Pulse Ox 97 05/12/21 11:35 Weight - Most Recent: 98 lb I&O - Last 24 Hours: Intake & Output 05/11/21 05/12/21 05/12/21 22:59 06:59 14:59 Intake Total 150 Balance 150 Lab Results Last 24 Hours: Laboratory Results - last 24 hr 05/11/21 05/12/21 05/12/21 Range/Units 20:39 05:30 05:30 WBC 10.9 (4.5-11.0) K/uL RBC 3.40 (3.30-5.50) M/uL Hgb 10.3 L (12.0-15.0) g/dL Hct 32.0 L (36.0-48.0) % MCV 94 (80-98) fL MCH 30 (27-31) pg MCHC 32 (32-36) % Plt Count 438 H (150-400) K/uL Sodium 143 (140-148) mmol/L Potassium 4.0 (3.6-5.2) mmol/L Chloride 107 (100-108) mmol/L Carbon Dioxide 27 (21-32) mmol/L Anion Gap 8.7 (5.0-14.0) mmol/L BUN 15 (7-18) mg/dL Creatinine 1.1 H (0.6-1.0) mg/dL Est Cr Clr Drug Dosing 31.96 mL/min Estimated GFR (MDRD) 49 L (>60) Glucose 85 (74-106) mg/dL Lactic Acid 1.8 (0.4-2.0) mmol/L Calcium 8.3 L (8.5-10.1) mg/dL Med Orders - Current: Current Medications Acetaminophen (Acetaminophen 325 Mg Tab) 650 mg PO Q4H PRN PRN Reason: Pain (Mild 1-3)/fever Donepezil HCl (Donepezil 10 Mg Tab) 10 mg PO BEDTIME [facility] Last Admin: 05/11/21 22:32 Dose: Not Given Documented by: Fluoxetine HCl (Fluoxetine 20 Mg Cap) 40 mg PO DAILY [facility] Last Admin: 05/12/21 08:43 Dose: 40 mg Documented by: Ceftriaxone Sodium 1 gm/ (Sodium Chloride) 50 mls @ 100 mls/hr IV Q24H [facility] Last Admin: 05/12/21 13:52 Dose: 100 mls/hr Documented by: Lactobacillus Rhamnosus (Lactobacillus Rhamnosus Gg (Probiotic) Cap) 1 cap PO BID [facility] Last Admin: 05/12/21 08:43 Dose: 1 cap Documented by: Lorazepam (Lorazepam 0.5 Mg Tab) 0.5 mg PO BID PRN PRN Reason: Agitation Lorazepam (Lorazepam 2 Mg/Ml Sdv) 0.5 mg IVPUSH Q4H PRN PRN Reason: Nausea/Vomiting Magnesium Hydroxide (Magnesium Hydroxide 400 Mg/5 Ml Susp 30 Ml Cup) 30 ml PO Q12H PRN PRN Reason: Constipation Melatonin (Melatonin 3 Mg Tab) 9 mg PO BEDTIME [facility] Last Admin: 05/11/21 22:19 Dose: 9 mg Documented by: Non-Formulary Medication (Clozapine [Clozapine]) 50 mg PO BEDTIME [facility] Non-Formulary Medication (Propylene Glycol/Peg 400/Pf [Systane 0.3-0.4% Eye Drop]) 1 drop EYEBOTH BID [facility] Ondansetron HCl (Ondansetron 4 Mg/2 Ml Sdv) 4 mg IV Q6H PRN PRN Reason: Nausea/Vomiting Ondansetron HCl (Ondansetron 4 Mg Tab.Dis) 4 mg PO Q6H PRN PRN Reason: Nausea able to take PO Risperidone (Risperidone 0.5 Mg Tab) 0.5 mg PO BEDTIME [facility] Senna/Docusate Sodium (Docusate Sodium/Sennosides 50-8.6 Mg Tab) 1 tab PO BID PRN PRN Reason: Constipation Sodium Chloride (Sodium Chloride 0.9% 10 Ml Syringe) 10 ml FLUSH ASDIRECTED PRN PRN Reason: Keep Vein Open Last Admin: 05/11/21 20:28 Dose: 10 ml Documented by: Discontinued Medications Sodium Chloride (Normal Saline) 1,000 mls @ 500 mls/hr IV ASDIRECTED TRUNG Last Admin: 05/11/21 20:28 Dose: 500 mls/hr Documented by: Risperidone (Risperidone 1 Mg Tab) 0.5 mg PO BEDTIME [facility] Last Admin: 05/11/21 22:33 Dose: Not Given Documented by: - Exam General: Alert, Oriented, Cooperative, Mild Distress Lungs: Clear to Auscultation, Normal Respiratory Effort Cardiovascular: Regular Rate, Regular Rhythm, No Murmurs GI/Abdominal Exam: Soft, Non-Tender, No Organomegaly, No Distention Extremities: Non-Tender, No Pedal Edema - Patient Data Lab Results Last 24 hrs: Laboratory Results - last 24 hr 05/11/21 05/12/21 05/12/21 Range/Units 20:39 05:30 05:30 WBC 10.9 (4.5-11.0) K/uL RBC 3.40 (3.30-5.50) M/uL Hgb 10.3 L (12.0-15.0) g/dL Hct 32.0 L (36.0-48.0) % MCV 94 (80-98) fL MCH 30 (27-31) pg MCHC 32 (32-36) % Plt Count 438 H (150-400) K/uL Sodium 143 (140-148) mmol/L Potassium 4.0 (3.6-5.2) mmol/L Chloride 107 (100-108) mmol/L Carbon Dioxide 27 (21-32) mmol/L Anion Gap 8.7 (5.0-14.0) mmol/L BUN 15 (7-18) mg/dL Creatinine 1.1 H (0.6-1.0) mg/dL Est Cr Clr Drug Dosing 31.96 mL/min Estimated GFR (MDRD) 49 L (>60) Glucose 85 (74-106) mg/dL Lactic Acid 1.8 (0.4-2.0) mmol/L Calcium 8.3 L (8.5-10.1) mg/dL Result Diagrams: 05/12/21 05:30 05/12/21 05:30 Sepsis Event Note - Evaluation Sepsis Screening Result: No Definite Risk - Focused Exam Vital Signs: Vital Signs Temp Pulse Resp BP Pulse Ox 05/12/21 11:35 96.8 F L 73 16 111/55 L 97 05/12/21 07:43 97.3 F 72 16 122/49 L 95 - Problem List Review Problem List Initiated/Reviewed/Updated: Yes - Plan Plan:: ASSESSMENT AND PLAN - Acute cystitis without hematuria-modest improvement since admission with increased overall strength -Continue ceftriaxone every 24 hours -Follow-up culture -Probiotics -Physical therapy in the morning Alzheimer's dementia with behavioral disturbance-previous psychotic episodes and 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 Multiple visits to the behavioral units. is her caregiver at home. -Continue home medications Maintenance issues - -DVT prophylaxis-mechanical -GI prophylaxis-not indicated -Nutrition-regular -Forde catheter-not indicated CODE STATUS -full code Admission justification -this patient will be admitted to observation for additional antibiotic therapy and physical therapy Disposition -I anticipate discharge home after the hospital stay Primary care physician -[facility]
[2021-05-12] MEDS ORDERED: Hypromellose 0.3% Ophth Soln 15 ML Bottle EYEBOTH PRN (15:40)
[2021-05-12] MEDS: Melatonin 3 MG Tab PO SCH (20:43)
[2021-05-12] MEDS: Donepezil 10 MG Tab PO SCH (20:43)
[2021-05-12] MEDS ORDERED: CLOZAPINE 50 MG PO SCH (21:00)
[2021-05-12] MEDS ORDERED: risperiDONE 0.5 MG Tab PO SCH (21:00)
[2021-05-13] MEDS: FLUoxetine 20 MG Cap PO SCH (08:06)
[2021-05-13] MEDS: Lactobacillus Rhamnosus GG (Probiotic) Cap PO SCH (08:07)
[2021-05-13] MEDS: cefTRIAXone 1 GM in Sodium Chloride 0.9% 50 ML IV SCH (12:24)
--- NOTE | 2021-05-13 14:25 | PCM.DCSUM1 ---
Discharge Summary - Hospital Course Brief History: Ms. Lima is a 75-year-old woman who was admitted through the emergency department with weakness secondary to underlying urinary tract infection. - Discharge Data Discharge Date: 05/13/21 Discharge Disposition: Home, W Home Health Agency 06 Condition: Fair - Referral to Home Health Date of Face to Face Encounter: 05/13/21 Reason for Homebound Status: Weakness Primary Care Physician: Nabeel Mercado MD Skilled Need: Generalized weakness, requires nursing care, home health aide, physical therapy, and Occupational Therapy - Patient Summary/Data Consults: Consultations 05/12/21 07:00 PT Evaluation and Treatment [CONS] Routine Please Evaluate and Treat. PT Reason for Consult: Strengthening This query below is only for informational purposes and is not editable. Hospital Course: Ms. Lima presented to the emergency room with weakness. She was evaluated in the emergency room earlier and diagnosed with a urinary tract infection. She received a dose of ceftriaxone, 1 L of fluids and a prescription for outpatient antibiotics. Her felt she was doing well enough to go home. After he got home he felt she was too weak and sent her back by ambulance. She provides very little history. She was able to tell me that she is feeling a little better after the antibiotics and fluids. She did say yes when I ask if she was having pain but is not able to tell me where her pain is at or what it feels like. After the initial 2 or 3 questions she quit answering and closed her eyes and sat there quietly. It is unclear how many days she has been sick for. Her vital signs have been stable since her return visit. She had not had fevers during her emergency room stay. Work-up earlier revealed a white count of 20,000 and mild elevation of lactic acid at 2.4. Her vitals were all stable. Urine strongly suggestive of infection. She received a dose of ceftriaxone and some fluids and was sent home. She was admitted to the hospital and continued on IV ceftriaxone for management of her urinary tract infection. Over the next 2 days of her hospital stay she gradually regained strength and was able to transfer and ambulate with only standby assistance. Her felt comfortable in taking her home. She already has received a prescription for oral cephalexin for ongoing management of her urinary tract infection. Home care services including home physical therapy and Occupational Therapy will be arranged for her after discharge. Activity will be as tolerated and she will resume her usual diet. Follow-up appointment will be scheduled with her primary care provider within 1 week. - Patient Instructions Diet: Usual Diet as Tolerated Activity: As Tolerated Other/Special Instructions: Please schedule follow-up appointment with primary care provider within 1 week. Please arrange for home care services after discharge including home physical therapy and Occupational Therapy. - Discharge Plan *PRESCRIPTION DRUG MONITORING PROGRAM REVIEWED*: Not Applicable *COPY OF PRESCRIPTION DRUG MONITORING REPORT IN PATIENT TRAE: Not Applicable Home Medications: Home Meds Cholecalciferol (Vitamin D3) [Vitamin D3] 50 mcg PO DAILY 01/16/21 [History] Donepezil HCl [Aricept] 10 mg PO BEDTIME 01/16/21 [History] FLUoxetine HCl [Prozac] 40 mg PO DAILY 01/16/21 [History] LORazepam [Ativan] 0.5 mg PO BID PRN 01/16/21 [History] Loratadine 10 mg PO ASDIRECTED 01/16/21 [History] Mv-Min/Iron/Folic/Calcium/Vitk [Women's Multivitamin Tablet] 1 tab PO DAILY 01/16/21 [History] Propylene Glycol/PEG 400/Pf [Systane 0.3-0.4% Eye Drop] 1 drop EYEBOTH BID 01/16/21 [History] lisinopriL [Lisinopril] 2.5 mg PO DAILY 01/16/21 [History] risperiDONE [Risperdal] 0.5 mg PO BEDTIME 01/16/21 [History] cloZAPine 50 mg PO BEDTIME 04/15/21 [History] cephALEXin [Keflex] 500 mg PO Q8H 10 Days #30 cap 05/11/21 [Rx] Patient Handouts: Urinary Tract Infection, Adult, [id number] Referrals: Anirudh Barragan PA [Consulting Physician] - 05/22/21 1:40 pm (Please arrive 15 minutes early to register for your appointment. ) - Discharge Summary/Plan Comment DC Time >30 min.: No Total # of Minutes for Discharge Time: 20 - Patient Data Vitals - Most Recent: Last Vital Signs Temp 97.6 F 05/13/21 10:59 Pulse 61 05/13/21 10:59 Resp 16 05/13/21 10:59 BP 149/47 H 05/13/21 10:59 Pulse Ox 97 05/13/21 10:59 Weight - Most Recent: 97 lb 15.998 oz I&O - Last 24 hours: Intake & Output 05/12/21 05/13/21 05/13/21 22:59 06:59 14:59 Intake Total 750 680 Output Total 600 Balance 750 80 Med Orders - Current: Current Medications Acetaminophen (Acetaminophen 325 Mg Tab) 650 mg PO Q4H PRN PRN Reason: Pain (Mild 1-3)/fever Artificial Tears (Hypromellose 0.3% Ophth Soln 15 Ml Bottle) 0 ml EYEBOTH BID PRN PRN Reason: DRY EYES Donepezil HCl (Donepezil 10 Mg Tab) 10 mg PO BEDTIME [facility] Last Admin: 05/12/21 20:43 Dose: 10 mg Documented by: Fluoxetine HCl (Fluoxetine 20 Mg Cap) 40 mg PO DAILY [facility] Last Admin: 05/13/21 08:06 Dose: 40 mg Documented by: Ceftriaxone Sodium 1 gm/ (Sodium Chloride) 50 mls @ 100 mls/hr IV Q24H [facility] Last Admin: 05/13/21 12:24 Dose: 100 mls/hr Documented by: Lactobacillus Rhamnosus (Lactobacillus Rhamnosus Gg (Probiotic) Cap) 1 cap PO BID [facility] Last Admin: 05/13/21 08:07 Dose: 1 cap Documented by: Lorazepam (Lorazepam 0.5 Mg Tab) 0.5 mg PO BID PRN PRN Reason: Agitation Lorazepam (Lorazepam 2 Mg/Ml Sdv) 0.5 mg IVPUSH Q4H PRN PRN Reason: Nausea/Vomiting Magnesium Hydroxide (Magnesium Hydroxide 400 Mg/5 Ml Susp 30 Ml Cup) 30 ml PO Q12H PRN PRN Reason: Constipation Melatonin (Melatonin 3 Mg Tab) 9 mg PO BEDTIME [facility] Last Admin: 05/12/21 20:43 Dose: 9 mg Documented by: Clozapine 50mg (Tablet Ptom) 0 mg PO BEDTIME [facility] Last Admin: 05/12/21 20:44 Dose: 50 mg Documented by: Ondansetron HCl (Ondansetron 4 Mg/2 Ml Sdv) 4 mg IV Q6H PRN PRN Reason: Nausea/Vomiting Ondansetron HCl (Ondansetron 4 Mg Tab.Dis) 4 mg PO Q6H PRN PRN Reason: Nausea able to take PO Risperidone (Risperidone 0.5 Mg Tab) 0.5 mg PO BEDTIME [facility] Last Admin: 05/12/21 21:15 Dose: 0.5 mg Documented by: Senna/Docusate Sodium (Docusate Sodium/Sennosides 50-8.6 Mg Tab) 1 tab PO BID PRN PRN Reason: Constipation Sodium Chloride (Sodium Chloride 0.9% 10 Ml Syringe) 10 ml FLUSH ASDIRECTED PRN PRN Reason: Keep Vein Open Last Admin: 05/11/21 20:28 Dose: 10 ml Documented by: Discontinued Medications Sodium Chloride (Normal Saline) 1,000 mls @ 500 mls/hr IV ASDIRECTED [facility] Last Admin: 05/11/21 20:28 Dose: 500 mls/hr Documented by: Risperidone (Risperidone 1 Mg Tab) 0.5 mg PO BEDTIME [facility] Last Admin: 05/11/21 22:33 Dose: Not Given Documented by: - Exam General: Reports: Alert, Oriented, Cooperative, No Acute Distress Lungs: Reports: Clear to Auscultation, Normal Respiratory Effort Cardiovascular: Reports: Regular Rate, Regular Rhythm, No Murmurs GI/Abdominal Exam: Soft, Non-Tender, No Organomegaly, No Distention
== END 2021-05-13 15:30 | disposition home health service (06) ==
LOC: JP.ED 19:58 → JP.MS 21:17
PROVIDERS: ADMIT Internal Medicine; ATTEND Hospitalist
DX: N30.00 Acute cystitis without hematuria (principal); G30.9 Alzheimer's disease, unspecified; F02.81 Dementia in other diseases classified elsewhere, unspecified severity, with behavioral disturbance; E78.00 Pure hypercholesterolemia, unspecified; I10 Essential (primary) hypertension; G47.30 Sleep apnea, unspecified; Z88.0 Allergy status to penicillin; Z88.2 Allergy status to sulfonamides; Z79.899 Other long term (current) drug therapy
CPT/HCPCS: 36415; 80048; 83605; 85027; 96365; 97161-GP; 99285; A9270-GY; G0378; J0696; J7030